=== PATIENT | male | born 1965 | race Caucasian/White ===

== ENCOUNTER → 2019-03-11 12:54 | Outpatient (BNVA) | payer MEDICAID, SELFPAY | PROVIDERS: Family Provider Registered Nurse; PCP Registered Nurse; Visit Provider Anesthesiology | DX: G89.29 Other chronic pain (principal); M47.16 Other spondylosis with myelopathy, lumbar region; M51.06 Intervertebral disc disorders with myelopathy, lumbar region; M53.2X7 Spinal instabilities, lumbosacral region; M51.16 Intervertebral disc disorders with radiculopathy, lumbar region; M51.36 Other intervertebral disc degeneration, lumbar region; M50.30 Other cervical disc degeneration, unspecified cervical region; F17.210 Nicotine dependence, cigarettes, uncomplicated; Z79.891 Long term (current) use of opiate analgesic | CPT/HCPCS: 99214 ==

== ENCOUNTER → 2019-04-02 11:09 | Outpatient (BNVA) | payer MEDICAID, SELFPAY | PROVIDERS: Family Provider Registered Nurse; PCP Registered Nurse; Visit Provider Urology | DX: Z12.5 Encounter for screening for malignant neoplasm of prostate (principal); N40.1 Benign prostatic hyperplasia with lower urinary tract symptoms; N41.1 Chronic prostatitis | CPT/HCPCS: 81001 ==

== ENCOUNTER → 2019-05-05 12:34 | Outpatient (BNVA) | payer MEDICAID, SELFPAY | PROVIDERS: Family Provider Registered Nurse; PCP Registered Nurse; Visit Provider Nurse Practitioner | DX: G89.29 Other chronic pain (principal); M54.5 Low back pain; F17.210 Nicotine dependence, cigarettes, uncomplicated; Z79.891 Long term (current) use of opiate analgesic; Z71.6 Tobacco abuse counseling | CPT/HCPCS: 99213 ==

== ENCOUNTER → 2019-07-28 09:23 | Outpatient (BNVA) | payer MEDICAID, SELFPAY | PROVIDERS: Family Provider Registered Nurse; PCP Registered Nurse; Visit Provider Anesthesiology | DX: G89.29 Other chronic pain (principal); M51.36 Other intervertebral disc degeneration, lumbar region; M51.16 Intervertebral disc disorders with radiculopathy, lumbar region; M51.06 Intervertebral disc disorders with myelopathy, lumbar region; M53.2X7 Spinal instabilities, lumbosacral region; M47.16 Other spondylosis with myelopathy, lumbar region; M50.30 Other cervical disc degeneration, unspecified cervical region; F17.210 Nicotine dependence, cigarettes, uncomplicated; Z71.6 Tobacco abuse counseling | CPT/HCPCS: 99214 ==

== ENCOUNTER 2021-02-22 11:50 | Outpatient (CLI) | payer MEDICAID, SELFPAY ==
--- NOTE | 2021-02-22 11:57 | XR_ITS ---
WS: [id number] ABDOMEN 1 VIEW(S) HISTORY: hematuria COMPARISON: None available. Extensive air throughout the GI tract. Predominantly within the upper abdomen in the small bowel in t he LEFT abdomen. No definite obstruction at this time. There is moderate fecal retention throughout t he RIGHT colon. No suspicious masses or calcifications. There are small phleboliths in the pelvis. No bone abnormality. XR/XR KUB [id number] IMPRESSION: Increased amount of air within portions of the small bowel and colon. Favor gas troenteritis. Kidneys are obscured by GI content. Cannot visualize renal calcifications.
== END 2021-02-22 11:51 | disposition home or self-care (01) ==
PROVIDERS: PCP Registered Nurse; Visit Provider Nurse Practitioner
DX: R31.0 Gross hematuria (principal)
CPT/HCPCS: 74018; 81003; 87086

== ENCOUNTER → 2021-03-09 14:58 | Outpatient (BNVA) | payer MEDICAID, SELFPAY | PROVIDERS: PCP Registered Nurse; Visit Provider Urology | DX: Z20.822 Contact with and (suspected) exposure to COVID-19 (principal); R31.0 Gross hematuria; C67.2 Malignant neoplasm of lateral wall of bladder; N40.1 Benign prostatic hyperplasia with lower urinary tract symptoms; F17.200 Nicotine dependence, unspecified, uncomplicated; N32.89 Other specified disorders of bladder | CPT/HCPCS: 80048; 81003; 85025; 87635 ==

== ENCOUNTER 2021-03-13 06:07 | Day surgery (SDC) | payer MEDICAID, SELFPAY ==
[2021-03-10 12:04] VITALS: BMI 29.7
--- NOTE | 2021-03-13 06:11 | XR_ITS ---
WS: [id number] CHEST 2 VIEWS HISTORY: Newly diagnosed bladder cancer COMPARISON: None available. Lungs: Mild elevation of the LEFT hemidiaphragm. No pneumonia or nodules. No pleural effusion or pneu mothorax. Cardiac size: Normal. Mediastinum/Aorta: Normal mediastinum. Bones: Normal. XR/XR chest 2V* [id number] IMPRESSION: 1. No pulmonary nodule or mass. 2. Slight elevation LEFT hemidiaphragm.
--- NOTE | 2021-03-13 06:57 | PM.MISC ---
Miscellaneous Note Purpose of Documentation: Change of status Note: Unfortunately there are no beds in the hospital and there were 10 borders in the emergency department that would make it very unlikely to find a bed today. I reviewed with Russell these issues and he was graciously willing to postpone his surgery to Saturday the in the afternoon which would increase her chances most likely appeal to get a bed. If that does not work we can try Saturday the . Our plan is to communicate early on Saturday morning to confirm that there is a good chance of being able to do the cases based on bed availability. I reassured him that based on the findings cystoscopically that his risk is low from postponement. We will plan for TURBT on Saturday in the afternoon Routine prep
--- NOTE | 2021-03-13 06:59 | ANES.PREANE2 ---
Pre-Anesthetic Assessment Pre-Anesthetic Assessment: Height/Weight: Height 1.85 m Weight 102.058 kg Preop Diagnosis: Newly diagnosed bladder cancer Proposed Procedure: Operation Date: 03/13/21 07:00 Proposed Procedures p Cystoscopy(Not Applicable) - David Biggs MD s Transurethral Resection Bladder Tumor(Not Applicable) - David Biggs MD Was Beta Manny taken within 24 hours: N/A Was Clonidine taken within 24 hours: N/A Social: Social History: No alcohol Exam: Pre-Anes Outpt Exam: alert, oriented x 3, clear to auscultation bilaterally and regular rate & rhythm Airway: Submandibular: WNL Cervical ROM: WNL MP: 2 Dentition: Chipped Pulmonary: Pulmonary: COPD CV/HEM: CV/HEM: HTN Metabolic: Metabolic: Hyperlipidemia Musc/skel: Musc/skel: Lower Back Pain Neuropsych: Neuropsych: Neuropathy Anesthetic Plan: ASA status: 3 Anesthesia: General Risk of > 500 ml blood loss (7ml/kg in children): No PFSH Anesthesia PFSH: Medical History (Updated 03/09/21 @ 14:55 by David Biggs MD) Bladder cancer BPH loc w urin obs/LUTS Chronic low back pain Chronic prostatitis DDD (degenerative disc disease), cervical DDD (degenerative disc disease), lumbar Displacement of lumbar disc with radiculopathy Gross hematuria Instability, joint, lumbosacral 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
--- NOTE | 2021-03-13 07:27 | SUR.PREOP ---
0645 Dr Biggs here and surgery postponed til saturday due to no beds upstairs to be admitted into hospital
== END 2021-03-13 07:31 | disposition home or self-care (01) ==
PROVIDERS: PCP Registered Nurse; Visit Provider Urology
PROC: 0TJB8ZZ Inspection of Bladder, Via Natural or Artificial Opening Endoscopic (ICD-10-PCS; CPT 52000; principal; 2021-03-13 07:00)
PROC: 0TBB8ZZ Excision of Bladder, Via Natural or Artificial Opening Endoscopic (ICD-10-PCS; 2021-03-13 07:00)
DX: C67.9 Malignant neoplasm of bladder, unspecified (principal); Z53.8 Procedure and treatment not carried out for other reasons; J44.9 Chronic obstructive pulmonary disease, unspecified; I10 Essential (primary) hypertension; E78.5 Hyperlipidemia, unspecified; N40.1 Benign prostatic hyperplasia with lower urinary tract symptoms; N13.8 Other obstructive and reflux uropathy; F17.210 Nicotine dependence, cigarettes, uncomplicated; Z82.49 Family history of ischemic heart disease and other diseases of the circulatory system
CPT/HCPCS: 71046

== ENCOUNTER 2021-03-15 06:33 | Day surgery (SDC) | payer MEDICAID, SELFPAY ==
[2021-03-14 12:07] VITALS: BMI 29.7
[2021-03-15] VITALS (17 sets, daily range): BP systolic 131–177; BP diastolic 75–101; PULSE 72–93; RESP 10–20; TEMP 36.2–36.7; O2SAT 93–99
--- NOTE | 2021-03-15 07:12 | P.ANESUD_ITS ---
Pre-Anesthetic Update Pre-Anesthetic Assessment: Date of Surgery/Procedure: 03/15/21 Preop Chyna gnosis: Newly diagnosed bladder cancer Proposed Procedure: Operation Date: 03/15/21 08:00 Proposed Procedures p Cystoscopy 27491/c67.2(Not Applicable) - David Biggs MD s Transurethral Resection Bladder Tumor(Not Applicable) - David Biggs MD Any changes to Pre-Anesthetic Assessment?: No Last Intake: Intake Last Liquid Date 03/15/21 Last Liquid Time 05:00 Last Solid Date 03/14/21 Last Solid Time 20:00 Vitals: Temperature 97.5 F L 03/15/21 06:45 Temperature Source Temporal Artery S can 03/15/21 06:45 Pulse Rate 93 03/15/21 06:45 Pulse Rhythm 03/15/21 06:48 Pulse Strength 3+ Normal 03/15/21 06:48 Respiratory Rate 18 03/15/21 06:45 Blood Pressure 131/89 03/15/21 06:45 Blood Pressure Oumou n 103 03/15/21 06:45 Pulse Oximetry 99 03/15/21 06:45 Oxygen Delivery Me thod 03/15/21 06:48 Exam: Pre-Anes Outpt Exam: alert, oriented x 3, clear to auscultation bilaterally and regular rate & rhythm Cardiac Studies: No Data to Display
[2021-03-15] MEDS: sodium chloride 0.9% 1,000 ML 30 ML IV (07:13)
--- NOTE | 2021-03-15 07:53 | W.PM.OPSUD ---
Surgery/Procedure H&P Update DATE OF PROCEDURE: March 15, 2021 DATE H&P PERFORMED: 03/09/21 CHANGES TO PREVIOUS DOCUMENTATION: He was originally scheduled for this procedure on 03/13/2021 but the surgery was postponed until today because of no beds available for postop care. There has been no change in his clinical condition since that time. PREOP DIAGNOSIS: Newly diagnosed bladder cancer PRIMARY INDICATION FOR PROCEDURE: Newly diagnosed bladder cancer. PLANNED PROCEDURE: Operation Date: 03/15/21 08:00 Proposed Procedures p Cystoscopy 25610/c67.2(Not Applicable) - David Biggs MD s Transurethral Resection Bladder Tumor(Not Applicable) - David Biggs MD
--- NOTE | 2021-03-15 07:59 | PM.OP ---
Operative Report Date of procedure: March 15, 2021 Pre-op diagnosis: Preop Diagnosis Newly diagnosed bladder cancer Post-op diagnosis: Newly diagnosed bladder cancer Post-op findings: Large bladder tumor involving the left ureteral orifice. Procedure done: 1. Cystoscopy, transurethral section of bladder tumor large 2. Left ureteroscopy Specimens removed/disposition: Bladder tumor specimen Pathology: Bladder tumor specimens Surgeon: Kalyan Estimated blood loss: Minimal Urine output: Not measured Complications: None Brief History: Russell is a very pleasant 55-year-old white male recently evaluated for gross hematuria and was found to have a papillary tumor on the left posterior lateral bladder wall. The left ureteral orifice could not be clearly identified on clinic cystoscopy. He is admitted for TURBT. Was originally scheduled for 03/13/2021 but had to be postponed due to lack of availability of beds due to hospital capacity being reached. Procedure: After routine preoperative evaluation examination and obtaining of informed consent he was taken to the operating suite on 03/15/2021 where general anesthesia was administered without difficulty after appropriate timeout was performed, SCDs confirmed to be functioning, preoperative antibiotics administered, beta-mario protocol confirmed. Prepped and draped in usual sterile fashion in dorsolithotomy position paying careful attention to avoiding pressure points. 21 Argentine cystoscope with 30 degree lens was introduced into the urethra meatus and advanced into the bladder under videoscopy. The bladder was systematically examined with 30 and 70 degree lenses. The urethra was then calibrated with David sounds and easily accommodated 30 Argentine. 2% lidocaine jelly was instilled into the urethra and then a 25 Argentine well-lubricated resectoscope sheath with visual obturator in place was advanced into the bladder without difficulty. The gyrus bipolar system was utilized with the super loop for the resection and deep sampling and then button probe for the base fulguration. Findings: Tumor was greater than 5 cm in diameter. It involve the left ureteral orifice which was completely resected paying careful attention to avoiding fulguration on the ureteral mucosa. Muscle was visualized at the base of the resected area throughout. All chips were evacuated from the bladder with an Collarity evacuator. A 7 Argentine offset semirigid ureteroscope was carefully advanced into the distal ureter to confirm no residual tumor within the intramural tunnel remaining or in the distal ureter itself. There was none. It was decided to not leave a stent indwelling. Final inspection revealed good hemostasis. No remaining chips in the bladder. A 20 Argentine three-way Koroma catheter with 10 cc placed in the balloon was placed to dependent drainage. Very light CBI was initiated. Efflux was. He tolerated procedure well without complications and was awakened in the operating room and returned recovery in stable condition. PLANS: 1. Admit to observation status 2. Anticipate discharge tomorrow morning with catheter in place to allow better healing before stressing bladder with normal voiding.
[2021-03-15] MEDS: levofloxacin-dextrose 5 % 500 MG/100 ML PREMIX 100 MG IV (08:06)
--- NOTE | 2021-03-15 09:25 | ANE.PACU2 ---
Inpatient post-anesthesia follow up: Airway intact: Yes Vital signs: Temperature 97.7 F Pulse Rate 84 Respiratory Rate 16 Blood Pressure 164/92 Pulse Oximetry 93 Oxygen Delivery Me thod Room Air Oxygen Flow Rate Fraction of Inspir ed Oxygen Hydration adequate: Yes Nausea and vomiting: No Pain level: 2 Mental status: Baseline
--- NOTE | 2021-03-15 10:27 | PC.NURSE ---
0934 Pt taken to bay area in OPS due to no bed available on Med Surg unit. Pt awake and alert. VSS. Pt given water per his request. Denied further wants or needs. CLIR 1028 Pt resting with eyes closed, arouses easily to verbal stimuli. Bladder irrigation continues. Denies pain or discomfort. Denies wants or needs.
[2021-03-15] MEDS: fentaNYL 50 mcg/mL INJ 2mL IVP (13:20)
--- NOTE | 2021-03-15 13:21 | SUR.PHASEI ---
PATIENT WITH INCREASING PUBIC PAIN. MEDICATED FOR PAIN PER DOCTOR RENEE. HOUGH DRAINING WELL. PINK TINGED URINE.
--- NOTE | 2021-03-15 13:49 | SUR.PHASEI ---
RE-EVALUATED BY DOCTOR PEREZ.
--- NOTE | 2021-03-15 13:51 | PM.MISC ---
Miscellaneous Note Purpose of Documentation: Change of status Note: Originally the patient was scheduled to be admitted to observation and placed on the floor. His urine has been completely clear postoperatively and he is done very well. Currently he would be most likely lodging in the PACU or outpatient surgery area overnight based on lack of floor beds. I reviewed with him the type of care that would be required which would be minimal and I think he is comfortable with being discharged home. I am on the basis of the way his urine looks. We will make some arrangements for mitomycin instillation in the office tomorrow. I have alerted pharmacy to that change as well. He will be provided with a leg bag and night bag I have implicitly instructed him to avoid any lifting at all. Catheter will remain in until early next week for voiding trial. I reviewed with the nursing staff the changes and as well I spoke to the nursing house furnishings supervisor.
--- NOTE | 2021-03-15 14:27 | SUR.PHASEI ---
PATIENT WITH RELIEF OF PUBIC PAIN. TOLERATING PO FLUIDS WELL.
[2021-03-15] MEDS: HYDROcodone-acetaminophen 5-325 mg Tablet 1 TAB PO (16:07)
== END 2021-03-15 17:30 | disposition home or self-care (01) ==
PROVIDERS: PCP Registered Nurse; Visit Provider Urology
PROC: 0TJB8ZZ Inspection of Bladder, Via Natural or Artificial Opening Endoscopic (ICD-10-PCS; CPT 52000; principal; 2021-03-15 07:50)
PROC: 0TBB8ZZ Excision of Bladder, Via Natural or Artificial Opening Endoscopic (ICD-10-PCS; CPT 52240; 2021-03-15 07:50)
PROC: 0TJ98ZZ Inspection of Ureter, Via Natural or Artificial Opening Endoscopic (ICD-10-PCS; CPT 52351; 2021-03-15 07:50)
DX: C67.9 Malignant neoplasm of bladder, unspecified (principal); N40.1 Benign prostatic hyperplasia with lower urinary tract symptoms; N13.8 Other obstructive and reflux uropathy; F17.210 Nicotine dependence, cigarettes, uncomplicated
CPT/HCPCS: 52240; 52351; 88305; 88309; J1100; J1956; J2405; J2704; J2710; J3010; J3490; J7030

== ENCOUNTER 2021-03-16 03:15 | Emergency (ER) | payer MEDICAID, SELFPAY ==
[2021-03-16 03:21] VITALS: BP 118/78; PULSE 94; RESP 20; TEMP 36.7; O2SAT 95; BMI 29.7
--- NOTE | 2021-03-16 03:25 | W.ED.MALEGU ---
HPI - Male Genitourinary General: Chief complaint: Urogenital-Male Stated complaint: Catheter issues Time Seen by Provider: 03/16/21 03:25 Source: patient Mode of arrival: ambulatory Limitations: no limitations History of Present Illness: 55-year-old male he had a cystoscope this morning and had a tumor removed from his bladder states he has been having some lower abdominal pain decreased urine output since 11 he had a Koroma placed after surgery states he has had some blood in it believes of the Koroma may be clogged he states his pain is currently a 7 out of 10 denies any worst improving factors. Associated symptoms: Reports hematuria; Deny dysuria, nausea or vomiting Review of Systems Const: Denies: fever(s), chills, body aches or change in appetite Eyes: Denies: blurry vision or eye discomfort ENMT: Denies: throat pain or dental pain Card: Denies: chest pain Resp: Denies: dyspnea GI: Denies: abdominal pain, nausea, vomiting or diarrhea : Reports: oliguria and hematuria; Denies: dysuria Musc: Denies: neck pain or back pain Skin/Breast: Denies: rash Neuro: Denies: headache(s) Psych: Denies: depression Marvin/Lymph: Denies: easy bruising All/Imm: Denies: urticaria PFSH ED PFSH: Medical History Bladder cancer BPH loc w urin obs/LUTS Chronic low back pain Chronic prostatitis DDD (degenerative disc disease), cervical DDD (degenerative disc disease), lumbar Displacement of lumbar disc with radiculopathy Gross hematuria Instability, joint, lumbosacral 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 Opioid contract exists Smoker Spondylosis of lumbar spine with myelopathy Surgical History History of wisdom tooth extraction S/P hernia repair BILATERAL INGUINAL REPAIR A CHILD Family History Mother Heart disease CAUSED IN 70`S Father Brain aneurysm CAUSED AT AGE 71 Social History Alcohol intake: current Marital status: Single Current occupational status: disabled History of recent travel: No Physical Exam Const: COMMON NORMALS: no acute distress, patient oriented x3 and healthy appearing HENMT: COMMON NORMALS: normocephalic and atraumatic HEAD & SCALP: normocephalic and atraumatic Eye: COMMON NORMALS: Equal, round and reactive pupils present and EOMs intact bilaterally PUPIL: Yes Equal, round and reactive pupils present Neck/C-Spine: COMMON NORMALS: full ROM and supple Chest: COMMONS NORMALS: normal inspection of the chest and normal palpation of entire chest wall Resp: COMMON NORMALS: normal respiratory effort, No retractions, No use of accessory muscles and clear to auscultation bilaterally AUSCULTATION: clear to auscultation bilaterally Cardio: COMMON NORMALS: regular rate, regular rhythm and No murmurs present (Cardio) RATE: regular rate RHYTHM: regular rhythm GI: COMMON NORMALS: Normal to inspection, nondistended, normoactive bowel sounds present, Soft to palpation, non-tender and no masses PALPATION: Yes Soft to palpation : OTHER: Koroma bag in place no urine noted does have some slight blood in the bag Extremity: COMMON NORMALS: normal to inspection and full ROM Neuro: COMMON NORMALS: patient oriented x3, moves all extremities and no focal motor deficits Psych: COMMON NORMALS: mental status grossly normal, Normal thought process present and cooperative THOUGHT PROCESS: Normal thought process present Skin: COMMON NORMALS: no rashes or lesions noted and no wounds GENERAL SKIN EXAM: no rashes or lesions noted Course Vital Signs: Vital signs: Vital Signs Temperature 98.0 F 03/16/21 03:21 Pulse Rate 94 03/16/21 03:21 Respiratory Rate 20 H 03/16/21 03:21 Blood Pressure 118/78 03/16/21 03:21 Pulse Oximetry 95 03/16/21 03:21 MDM - Male Medical Decision Making Patient presents here with clogged Koroma catheter was able to flush it he had 400 out and feels improved he stable for discharge she has follow-up with Dr. Biggs today and is to follow-up as scheduled return if worsening. Discharge Plan Discharge Patient Disposition: Home Clinical Impression: Complication of Koroma catheter Condition: Stable Prescriptions: No Action simvastatin 20 mg tablet 20 mg PO QDAY 0RF melatonin 10 mg capsule 10 mg PO BEDTIME 0RF lisinopril 40 mg tablet 40 mg PO QDAY 0RF acetaminophen [Tylenol Extra Strength] 500 mg tablet 500 mg PO Q4H PRN (Reason: Pain) 0RF zinc 50 mg tablet 50 mg PO DAILY 0RF amitriptyline 50 mg tablet 100 mg PO QDAY 30 Days Qty: 60 2RF meloxicam 15 mg tablet 15 mg PO DAILY Qty: 30 3RF Hold Instructions: Resume on 03/22/21. 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
[2021-03-16 03:53] VITALS: BP 104/68; PULSE 97; RESP 17; O2SAT 98
--- NOTE | 2021-03-16 04:01 | PC.NURSE ---
Patient Catheter Care Patient catheter irrigated with 60mL sterile water to remove clots. Urine return 410mL dark red urine. Patient leg bag replaced.
[2021-03-16] MEDS: HYDROcodone-acetaminophen 5-325 mg Tablet 1 TAB PO (04:08)
== END 2021-03-16 04:23 | disposition home or self-care (01) ==
PROVIDERS: Emergency Provider Emergency Medicine; PCP Registered Nurse
DX: T83.9XXA Unspecified complication of genitourinary prosthetic device, implant and graft, initial encounter (principal); Z85.51 Personal history of malignant neoplasm of bladder
CPT/HCPCS: 99283

== ENCOUNTER 2021-03-16 14:15 | Observation (INO) | payer MEDICAID, SELFPAY ==
[2021-03-16 16:00] VITALS: BP 106/64; PULSE 95; RESP 14; TEMP 36.8; O2SAT 91
[2021-03-16] MEDS: D5-NS 0.45% + KCL 20 mEq 20 MEQ/1,000 ML BAG 150 MEQ IV ×2 (16:06→22:47)
--- NOTE | 2021-03-16 16:31 | PC.NURSE ---
patient requesting pain med. Dr Biggs notified.
[2021-03-16 16:54] LABS: Basophils % 0.2 %; Eosinophils % 0.3 %; Hematocrit 36.5 % (42.0-52.0); Lymphocytes # 2.2 10^3/uL (0.8-4.8); Mean Corpuscular HGB Conc 32.9 g/dL (30.0-36.0); Mean Corpuscular Hemoglobin 31.5 pg (28.0-34.0); Mean Corpuscular Volume 95.8 fl (80-94); Mean Platelet Volume 8.3 fL (7.4-10.4); Monocytes # 1.4 10^3/uL (0.2-0.9); Monocytes % 9.3 %; Neutrophils % 75.7 %; Nucleated Red Blood Cells % 0 %; Platelet Count 265 10^3/cmm (130-400); Red Blood Count 3.81 10^6/uL (4.1-5.3); White Blood Count 15.6 10^3/uL (4.0-10.0)
[2021-03-16] MEDS: docusate sodium 100 mg Capsule PO (16:55)
[2021-03-16] MEDS: HYDROcodone-acetaminophen 5-325 mg Tablet 1 TAB PO (16:55)
[2021-03-16] MEDS: tizanidine 4 mg Tablet PO (17:06)
[2021-03-16 18:04] LABS: Anion Gap 17.1 (5-19); Blood Urea Nitrogen 17 mg/dL (6-20); Calcium 9.4 mg/dL (8.5-10.5); Carbon Dioxide 24 mmol/L (22-29); Chloride 93 mmol/L (98-107); Creatinine Clr Calc Pharmacy 151.8637; Glomerular Filtration Rate 117.5 mL/min (90-130); Glucose 111 mg/dL (65-115); Osmolality Calculated 272 mOsm/kg (285-295); Potassium 4.1 mmol/L (3.5-5.1); Sodium 130 mmol/L (136-145)
[2021-03-16 20:00] VITALS: BP 97/59; PULSE 84; RESP 17; TEMP 36.9; O2SAT 93
[2021-03-16] MEDS: amitriptyline 25 mg Tablet 100 MG PO (20:44)
[2021-03-16] MEDS: gabapentin 400 mg Capsule 800 MG PO (20:45)
[2021-03-17] VITALS: BP 98/62; PULSE 79; RESP 17; O2SAT 94
[2021-03-17] MEDS: tizanidine 4 mg Tablet PO ×2 (03:21→16:23)
[2021-03-17 04:00] VITALS: BP 110/64; PULSE 89; O2SAT 90
[2021-03-17] MEDS: D5-NS 0.45% + KCL 20 mEq 20 MEQ/1,000 ML BAG 150 MEQ IV ×2 (05:31→11:54)
--- NOTE | 2021-03-17 06:57 | P.PN_ITS ---
Subjective Subjective: Interval history: Hospital day #2: Postop clot retention status post TURBT. Required multiple manual irrigations last night to get all the clots out. Around midnight last night they were able to get out some large clots and since that time his urine has remained clear. CBI requirements substantially reduced after that and able to be weaned off this morning. So far his urine remains clear. Denies any chest pain shortness of breath creasing abdominal pain. He did have a lot of bladder spasms when the clots were still present. Plan: Maintain Koroma catheter, have CBI available, manual irrigation as needed, reassess this afternoon. If there is any question I would change him to inpatient status and observe again overnight but if he does really well today with no evidence of recurrence of bleeding will consider discharge. Medications: Reviewed: Yes Vitals/I&O/Wt Last Vital Signs Temp 98.4 F 03/16/21 20:00 Pulse 89 03/17/21 04:00 Resp 17 03/17/21 00:00 BP 110/64 03/17/21 04:00 Pulse Ox 90 03/17/21 04:00 03/16/21 03/16/21 03/17/21 14:59 22:59 06:59 Intake Total 1000 / 1000 1000 / 2000 Balance 1000 / 1000 1000 / 2000 Weight last 48 hrs Weight 226 lb 4.8 oz Physical Exam Const: COMMON NORMALS: no acute distress, patient oriented x3 and healthy appearing HENMT: COMMON NORMALS: normocephalic HEAD & SCALP: normocephalic Chest: COMMONS NORMALS: normal inspection of the chest Resp: COMMON NORMALS: normal respiratory effort EFFORT & INSPECTION: Yes able to speak in complete sentences Cardio: COMMON NORMALS: regular rate RATE: regular rate GI: COMMON NORMALS: non-tender Back/Pelvis: OTHER: Urine clear. CBI turned Neuro: COMMON NORMALS: patient oriented x3 Psych: COMMON NORMALS: mental status grossly normal, cooperative and speech normal APPEARANCE: Yes grossly normal ATTITUDE: Yes calm and Yes engaged SPEECH: Yes normal speech Sepsis: Is patient septic: No Data : 03/16/21 16:45 03/16/21 17:33 A&P Assessment and plan (1) Clot retention of urine: It appears all the clots have been completely evacuated and his CBI has been able to be weaned down slowly with no increasing hematuria. We will continue with CBI off today and reevaluate this afternoon. Status: Acute (2) Bladder cancer: Status post TURBT 03/16/2021. Developed clot retention night of discharge/surgery. Status: Acute Qualifiers: Bladder location: lateral wall Qualified Code(s): C67.2 - Malignant neoplasm of lateral wall of bladder Plan Will evaluate for possible discharge this afternoon. If any question regarding increased risk of bleeding will placed inpatient status and observe again overnight. Reviewed with the nursing staff. Attestations Medical Necessity Statement*: Managing for risk of recurrent postop hemorrhage with clot retention. The initial episode was quite unexpected therefore cautious approach involving continued hospital observation today is required but there is a potential for discharge later today. 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
[2021-03-17 07:41] VITALS: BP 104/63; PULSE 88; RESP 15; TEMP 36.7; O2SAT 92
[2021-03-17] MEDS: gabapentin 400 mg Capsule 800 MG PO ×2 (09:41→16:23)
[2021-03-17] MEDS: docusate sodium 100 mg Capsule PO (09:41)
[2021-03-17] MEDS: lisinopril 20 mg Tablet 40 MG PO (09:41)
[2021-03-17] MEDS: atorvastatin 40 mg Tablet 20 MG PO (09:41)
[2021-03-17 12:00] VITALS: BP 113/68; PULSE 88; RESP 15; TEMP 36.6; O2SAT 92
[2021-03-17] MEDS: nicotine 21 mg Patch 1 PATCH TRANSDERMA (12:20)
[2021-03-17 16:00] VITALS: BP 121/78; PULSE 86; RESP 15; TEMP 37.3; O2SAT 93
--- NOTE | 2021-03-17 17:52 | P.DS_ITS ---
Discharge Providers Date of Admission: 03/16/21 14:15 Date of Discharge: March 17, 2021 Attending Provider at Admission: David Biggs MD Attending Provider at Discharge: David Biggs MD Primary Care Provider: EMORY Leong Diagnoses at Discharge Discharge Diagnosis (1) Clot retention of urine: Details from hospital stay: Postoperative clot retention. Required manual and continuous bladder irrigation but ultimately resolved and with no CBI did not recur. Status: Acute (2) Bladder cancer: Details from hospital stay: Pending pathology. Large tumor resected including the right ureteral orifice. Ureteroscopy showed no evidence of involvement in the remaining distal ureter. 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 His urine was clear postoperatively and he was hopeful to be discharged and was able to do so at that time. His urine remained clear until in the evening when he developed gross hematuria and ultimately presented to the emergency department with clot retention. Bladder was irrigated. He was brought into clinic that morning to check on him and he was in retention again. We irrigated about 800 cc of clot from his bladder in the clinic. He was started on CBI but his urine remained red enough that it was felt to be not safe to stop the CBI and for that reason he was direct admitted to the hospital for further evaluation and treatment. Hospital Course Hospital Course Patient was maintained on continuous bladder irrigation for close to 24 hours. Manual irrigation was intermittently performed. Once the clots were completely cleared CBI was run at a much lower rate with no recurrence of hematuria. CBI was turned off on hospital day number 2 in the morning and his urine remained clear throughout the day and for that reason he was offered the opportunity to continue convalescence at home and he chose to do so. Strict emphasis was made regarding avoiding lifting or straining of any variety. Encouraged him to use laxatives and stool softeners as needed. Also encouraged to drink a lot of fluid to reduce the chance of clot retention if he does have some more hematuria Physical Exam Const: COMMON NORMALS: no acute distress, patient oriented x3 and healthy appearing HENMT: COMMON NORMALS: normocephalic HEAD & SCALP: normocephalic Neck/C-Spine: COMMON NORMALS: full ROM Chest: COMMONS NORMALS: normal inspection of the chest Resp: COMMON NORMALS: normal respiratory effort EFFORT & INSPECTION: Yes able to speak in complete sentences Cardio: COMMON NORMALS: regular rate RATE: regular rate GI: COMMON NORMALS: Soft to palpation and non-tender PALPATION: Yes Soft to palpation Back/Pelvis: OTHER: Urine clear. CBI turned Neuro: COMMON NORMALS: patient oriented x3 Psych: COMMON NORMALS: mental status grossly normal, cooperative and speech normal APPEARANCE: Yes grossly normal ATTITUDE: Yes calm and Yes engaged SPEECH: Yes normal speech Sepsis: Is patient septic: No Discharge Data Studies Completed and Pending Laboratory Results WBC 15.6 10^3/uL (4.0-10.0) H 03/16/21 16:45 RBC 3.81 10^6/uL (4.1-5.3) L 03/16/21 16:45 Hgb 12.0 g/dL (11.7-16.6) 03/16/21 16:45 Hct 36.5 % (42.0-52.0) L 03/16/21 16:45 MCV 95.8 fl (80-94) H 03/16/21 16:45 MCH 31.5 pg (28.0-34.0) 03/16/21 16:45 MCHC 32.9 g/dL (30.0-36.0) 03/16/21 16:45 RDW 14.0 % (12.1-15.1) 03/16/21 16:45 Plt Count 265 10^3/cmm (130-400) 03/16/21 16:45 MPV 8.3 fL (7.4-10.4) 03/16/21 16:45 Neut % (Auto) 75.7 % 03/16/21 16:45 Lymph % (Auto) 14.0 % 03/16/21 16:45 [place] % (Auto) 9.3 % 03/16/21 16:45 Eos % (Auto) 0.3 % 03/16/21 16:45 Baso % (Auto) 0.2 % 03/16/21 16:45 Neut # (Auto) 11.80 10^3/uL (1.8-7.7) H 03/16/21 16:45 Lymph # (Auto) 2.2 10^3/uL (0.8-4.8) 03/16/21 16:45 [place] # (Auto) 1.4 10^3/uL (0.2-0.9) H 03/16/21 16:45 Eos # (Auto) 0.0 10^3/uL (0.0-0.8) 03/16/21 16:45 Baso # (Auto) 0.0 10^3/uL (0.0-0.1) 03/16/21 16:45 Nucleated RBC % (auto) 0 % 03/16/21 16:45 Nucleated RBCs # 0.0 /100WBC 03/16/21 16:45 Sodium 130 mmol/L (136-145) L 03/16/21 17:33 Potassium 4.1 mmol/L (3.5-5.1) 03/16/21 17:33 Chloride 93 mmol/L (98-107) L 03/16/21 17:33 Carbon Dioxide 24 mmol/L (22-29) 03/16/21 17:33 Anion Gap 17.1 (5-19) 03/16/21 17:33 BUN 17 mg/dL (6-20) 03/16/21 17:33 Creatinine 0.7 mg/dL (0.7-1.2) 03/16/21 17:33 GFR Calculation 117.5 mL/min (90-130) 03/16/21 17:33 Glucose 111 mg/dL (65-115) 03/16/21 17:33 Calculated Osmolality 272 mOsm/kg (285-295) L 03/16/21 17:33 Calcium 9.4 mg/dL (8.5-10.5) 03/16/21 17:33 Procedures Performed Continuous bladder irrigation and manual bladder irrigation Vitals Last Vital Signs Temp 99.1 F 03/17/21 16:00 Pulse 86 03/17/21 16:00 Resp 15 03/17/21 16:00 BP 121/78 03/17/21 16:00 Pulse Ox 93 03/17/21 16:00 Discharge Plan Discharge Patient Disposition: Home Condition: Stable Prescriptions: New levofloxacin 500 mg tablet 500 mg PO DAILY 7 Days Qty: 7 0RF Continued simvastatin 20 mg tablet 20 mg PO QDAY 0RF melatonin 10 mg capsule 10 mg PO BEDTIME 0RF lisinopril 40 mg tablet 40 mg PO QDAY 0RF acetaminophen [Tylenol Extra Strength] 500 mg tablet 500 mg PO Q4H PRN (Reason: Pain) 0RF zinc 50 mg tablet 50 mg PO DAILY 0RF amitriptyline 50 mg tablet 100 mg PO QDAY 30 Days Qty: 60 2RF tizanidine 4 mg tablet 4 mg PO TID PRN (Reason: muscle spasticity) Qty: 90 1RF gabapentin 800 mg tablet 800 mg PO TID Qty: 90 1RF Held meloxicam 15 mg tablet 15 mg PO DAILY Qty: 30 3RF Hold Instructions: Resume on 03/22/21. Discharge Orders: Discharge Order (Routine); Ordered 03/17/21 Ordered By: David Biggs Referrals: David Biggs MD [Physician] - 03/21/21 (Voiding trial, pathology report check) Discharge Diet: Usual diet Discharge Activity: Limit activity as instructed Patient Instructions: Levothyroxine (By mouth), Bladder Cancer (DC), Opioid Safety Activity Restrictions/Additional Instructions: 1. Is very important to avoid any strenuous activity or lifting. 2. This includes no straining for bowel movements. 3. If you see your urine becoming red please increase your fluid intake dramatically to help prevent clots. 4. Use laxatives as needed. 5. Continue the antibiotics prescribed for you until they are completed. 6. I will see you back in my office on Saturday for a pathology report check and voiding trial and catheter removal. Discharge Attestations Time Spent in Discharge Care*: greater than 30 min Quality Metrics Clinical Quality Measures [ No reported AMI, CVA or VTE this stay] Coding Level of Care Code Acute Chg FW DC note Diagnoses Clot retention of urine R33.8 Bladder cancer C67.0 Bladder location: trigone
--- NOTE | 2021-03-17 19:41 | PC.NURSE ---
pt has done well today. pts urine has been light pink at darkest. pt has had some clots. pt has not had any complaints of pain. pt will discharge this evening per Dr Biggs. discharge paperwork gone over with pt. the importance of taking it easy and not really doing anything until pt sees Dr Biggs was discussed. pt understood and said Dr Biggs had discussed this with him. pt plans to not do much the next couple of days. all questions were answered. iv removed. leg bag placed on pt. we are just waiting for pt's ride to get here. report given to nightshift nurse and she was told about the above. ride should be here in about 15 min per pt. operation shift supervisor will continue to monitor.
--- NOTE | 2021-03-17 23:18 | PC.NURSE ---
pt d/c and left floor via wheelchair and this nurse to meet ride at surgical entrance. all belongings were with the patient.
== END 2021-03-17 20:05 | disposition home or self-care (01) ==
PROVIDERS: Admitting Provider Urology; PCP Registered Nurse; Visit Provider Urology
DX: R33.8 Other retention of urine (principal); C67.8 Malignant neoplasm of overlapping sites of bladder; N40.1 Benign prostatic hyperplasia with lower urinary tract symptoms; N13.8 Other obstructive and reflux uropathy; F17.210 Nicotine dependence, cigarettes, uncomplicated; Z82.49 Family history of ischemic heart disease and other diseases of the circulatory system
CPT/HCPCS: 80048; 85025; G0378; G0379

== ENCOUNTER → 2021-05-23 13:21 | Outpatient (BNVA) | payer MEDICAID, SELFPAY | PROVIDERS: PCP Registered Nurse; Visit Provider Urology | DX: C67.0 Malignant neoplasm of trigone of bladder (principal) | CPT/HCPCS: 81003 ==

== ENCOUNTER → 2021-08-22 14:20 | Outpatient (BNVA) | payer MEDICAID, SELFPAY | PROVIDERS: PCP Registered Nurse; Visit Provider Urology | DX: C67.0 Malignant neoplasm of trigone of bladder (principal); N40.1 Benign prostatic hyperplasia with lower urinary tract symptoms | CPT/HCPCS: 52000; 81003 ==

== ENCOUNTER → 2021-11-23 14:19 | Outpatient (BNVA) | payer MEDICAID, SELFPAY | PROVIDERS: PCP Registered Nurse; Visit Provider Urology | DX: C67.0 Malignant neoplasm of trigone of bladder (principal) | CPT/HCPCS: 52000 ==

== ENCOUNTER → 2021-11-30 13:00 | Outpatient (BNVA) | payer MEDICAID, SELFPAY | PROVIDERS: PCP Registered Nurse; Visit Provider Urology | DX: C67.0 Malignant neoplasm of trigone of bladder (principal) | CPT/HCPCS: 88112 ==

== ENCOUNTER → 2022-02-27 09:20 | Outpatient (BNVA) | payer MEDICAID, SELFPAY | PROVIDERS: PCP Registered Nurse; Visit Provider Urology | DX: C67.0 Malignant neoplasm of trigone of bladder (principal) | CPT/HCPCS: 52000; 99213 ==

== ENCOUNTER 2022-03-28 10:51 | Outpatient (CLI) | payer MEDICAID, SELFPAY ==
--- NOTE | 2022-03-28 11:00 | XR_ITS ---
WS: [id number] XR IVP w KUB [id number] REASON FOR EXAM: BLADDER CANCER The patient's record of transurethral resection of bladder tumor was reviewed noting the need for sharon luating the intramural portion of the distal left ureter. FINDINGS: Initial corporate trust officer film demonstrated no urinary tract calculi. Significant amount of bowel gas was present which limited diagnostic quality examination. After intravenous constriction of contrast multiple images of the abdomen and pelvis were obtained. A normal right nephrogram was demonstrated. The left nephrogram was obscured by overlying bowel gas. The renal calyces and the renal pelvis were normal bilaterally. The mid and proximal ureters are of normal caliber and demonstrated a normal course to the bladder. The distal ureters are well demonstrated through the region of the bladder trigone. Distal ureters ap pear normal, symmetric. Specifically, there is no extrinsic or intrinsic mass effect identified in th e distal left/intramural segment. The filled and postvoid views of the bladder demonstrated no abnormality. XR/XR IVP w KUB [id number] IMPRESSION: Intravenous urogram with no abnormality identified. Specifically the distal left ureter/intramural segment appeared normal.
[2022-03-28] MEDS: iohexol 300 mg/mL 100 mL Btl IV (11:45)
== END 2022-03-28 10:52 | disposition home or self-care (01) ==
LOC: RAD 10:52
PROVIDERS: PCP Registered Nurse; Visit Provider Urology
DX: C67.0 Malignant neoplasm of trigone of bladder (principal)
CPT/HCPCS: 74400; 81003; 99213; Q9967

== ENCOUNTER 2022-07-05 07:29 | Day surgery (SDC) | payer MEDICAID, SELFPAY ==
[2022-07-03 14:52] VITALS: BMI 26.4
[2022-07-05 07:44] VITALS: BP 136/85; PULSE 90; RESP 18; TEMP 36.5; O2SAT 98
[2022-07-05] MEDS: sodium chloride 0.9% 1,000 ML 30 ML IV (07:53)
--- NOTE | 2022-07-05 09:02 | ANES.PREANE2 ---
Pre-Anesthetic Assessment Height/Weight: Height 1.85 m Weight 90.718 kg Temp Pulse Resp BP Pulse Ox 97.7 F 90 18 136/85 98 07/05/22 07:44 07/05/22 07:44 07/05/22 07:44 07/05/22 07:44 07/05/22 07:44 Preop Diagnosis: Screening Operation Date: 07/05/22 09:00 Proposed Procedures p [id number] Colonscopy Z12.11(Not Applicable) - David Olivia DO Familial anesthetic complications: None Was Beta Manny taken within 24 hours: N/A Was Clonidine taken within 24 hours: N/A Last intake: Intake Last Liquid Date 07/05/22 Last Liquid Time 06:30 Last Solid Date 07/03/22 Social Tobacco and No alcohol .5 pack(s) per day 30 pack years Some marijuana Exam alert, oriented x 3, clear to auscultation bilaterally and regular rate & rhythm Airway Submandibular: within normal limits Cervical ROM: within normal limits Mallampati: Class II Dentition: chipped History/ROS No significant history except as noted and No significant complaints Pulmonary None reported CV/HEM Hypertension and None reported Bladder cancer Hepatic None reported GI None reported Metabolic Hyperlipidemia Musc/skel Lower Back Pain and Osteoarthritis/DJD Neuropsych Neuropathy Anesthetic Plan ASA status: 2 Anesthesia: Anesthesia Evaluation, General and MAC Risk of > 500 ml blood loss (7ml/kg in children): No Medications/Allergies Home Medications Medication Instructions Recorded Confirmed Last Taken Type acetaminophen 500 mg tablet 500 mg PO Q4H PRN Pain 03/09/19 07/03/22 07/04/22 History (Tylenol Extra Strength) lisinopril 40 mg tablet 40 mg PO QDAY 03/09/19 07/03/22 07/04/22 History melatonin 10 mg capsule 10 mg PO BEDTIME 03/09/19 07/03/22 07/04/22 History simvastatin 20 mg tablet 20 mg PO QDAY 03/11/19 07/03/22 07/04/22 History amitriptyline 50 mg tablet 100 mg PO QDAY 30 days #60 tabs 05/05/19 07/03/22 07/04/22 Rx meloxicam 15 mg tablet 15 mg PO DAILY Pain #30 tabs 05/05/19 07/03/22 07/04/22 Rx gabapentin 800 mg tablet 800 mg PO TID pain #90 tabs 07/28/19 07/03/22 07/04/22 Rx tizanidine 4 mg tablet 4 mg PO TID PRN muscle spasticity 07/28/19 07/03/22 07/04/22 Rx #90 tabs Allergies Allergy/AdvReac Type Severity Reaction Status Date / Time No Known Allergies Allergy Verified 07/05/22 07:41 Current Medications Generic Name Dose Route Start Last Admin Trade Name Freq PRN Reason Stop Dose Admin Sodium Chloride 1,000 mls @ 30 mls/hr 07/05/22 07:45 07/05/22 07:53 Sodium Chloride 0.9% IV 07/06/22 07:44 30 mls/hr .Q24H KENYATTA Administration PFSH Anesthesia Medical History Bladder cancer BPH loc w urin obs/LUTS Chronic low back pain Chronic prostatitis DDD (degenerative disc disease), cervical DDD (degenerative disc disease), lumbar Displacement of lumbar disc with radiculopathy Gross hematuria Instability, joint, lumbosacral 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 Opioid contract exists Smoker Spondylosis of lumbar spine with myelopathy Surgical History History of transurethral destruction of bladder lesion History of wisdom tooth extraction S/P hernia repair BILATERAL INGUINAL REPAIR A CHILD Family History Mother Heart disease CAUSED IN 70`S Father Brain aneurysm CAUSED AT AGE 71 Social History Smoking and tobacco status: current every day smoker cigarettes Packs smoked per day: 0.5 Alcohol intake: current Alcohol intake frequency: holidays/special occasions only Substance/Drug Use: never Marital status: Single Current occupational status: disabled Data Anesthesia Cardiac Studies: No Data to Display
--- NOTE | 2022-07-05 09:29 | PM.HP ---
Providers/Chief Complaint Primary Care Provider: EMORY Leong Chief Complaint: 69136 Z12.11 History of Present Illness Russell Ortiz is a 56 year old male here for his first screening colonoscopy. He denies any family history of colon cancer, nausea, emesis, diarrhea, constipation, hematochezia and/or melena. Medications/Allergies Home Medications Medication Instructions Recorded Confirmed Last Taken Type acetaminophen 500 mg tablet 500 mg PO Q4H PRN Pain 03/09/19 07/03/22 07/04/22 History (Tylenol Extra Strength) lisinopril 40 mg tablet 40 mg PO QDAY 03/09/19 07/03/22 07/04/22 History melatonin 10 mg capsule 10 mg PO BEDTIME 03/09/19 07/03/22 07/04/22 History simvastatin 20 mg tablet 20 mg PO QDAY 03/11/19 07/03/22 07/04/22 History amitriptyline 50 mg tablet 100 mg PO QDAY 30 days #60 tabs 05/05/19 07/03/22 07/04/22 Rx meloxicam 15 mg tablet 15 mg PO DAILY Pain #30 tabs 05/05/19 07/03/22 07/04/22 Rx gabapentin 800 mg tablet 800 mg PO TID pain #90 tabs 07/28/19 07/03/22 07/04/22 Rx tizanidine 4 mg tablet 4 mg PO TID PRN muscle spasticity 07/28/19 07/03/22 07/04/22 Rx #90 tabs Allergies Allergy/AdvReac Type Severity Reaction Status Date / Time No Known Allergies Allergy Verified 07/05/22 07:41 PFSH Acute PFSH: Medical History Bladder cancer BPH loc w urin obs/LUTS Chronic low back pain Chronic prostatitis DDD (degenerative disc disease), cervical DDD (degenerative disc disease), lumbar Displacement of lumbar disc with radiculopathy Gross hematuria Instability, joint, lumbosacral 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 Opioid contract exists Smoker Spondylosis of lumbar spine with myelopathy Surgical History History of transurethral destruction of bladder lesion History of wisdom tooth extraction S/P hernia repair BILATERAL INGUINAL REPAIR A CHILD Family History Mother Heart disease CAUSED IN 70`S Father Brain aneurysm CAUSED AT AGE 71 Social History Smoking and tobacco status: current every day smoker cigarettes Packs smoked per day: 0.5 Alcohol intake: current Alcohol intake frequency: holidays/special occasions only Substance/Drug Use: never Marital status: Single Current occupational status: disabled Vitals/I&O/Wt Last Vital Signs Temp 97.7 F 07/05/22 07:44 Pulse 90 07/05/22 07:44 Resp 18 07/05/22 07:44 BP 136/85 07/05/22 07:44 Pulse Ox 98 07/05/22 07:44 Weight last 48 hrs Weight 200 lb A&P Assessment and plan (1) Colon cancer screening: Plan Colonoscopy The risks and benefits of the procedure, including bleeding, infection, intestinal perforation requiring surgery, missed lesion were explained to the patient. The patient is understanding of the risks and wishes to proceed. Attestations Medical Necessity Statement*: Home Coding Level of Care Code Acute Code for Chg Fwd Diagnoses Colon cancer screening Z12.11
[2022-07-05 09:47] VITALS: BP 97/63; PULSE 87; RESP 14; TEMP 36.1; O2SAT 96
[2022-07-05 10:09] VITALS: BP 115/81; PULSE 76; RESP 18; O2SAT 96
--- NOTE | 2022-07-05 17:19 | ANE.PACU2 ---
Inpatient post-anesthesia follow up: Airway intact: Yes Vital signs: Temperature 97 F Pulse Rate 76 Respiratory Rate 18 Blood Pressure 115/81 Pulse Oximetry 96 Oxygen Delivery Me thod Room Air Oxygen Flow Rate Fraction of Inspir ed Oxygen Hydration adequate: Yes Nausea and vomiting: No Pain level: 1 Mental status: Baseline
== END 2022-07-05 10:29 | disposition home or self-care (01) ==
PROVIDERS: PCP Registered Nurse; Visit Provider Surgery
PROC: 0DJD8ZZ Inspection of Lower Intestinal Tract, Via Natural or Artificial Opening Endoscopic (ICD-10-PCS; CPT 45378; principal; 2022-07-05 09:00)
DX: Z12.11 Encounter for screening for malignant neoplasm of colon (principal); F17.210 Nicotine dependence, cigarettes, uncomplicated; I10 Essential (primary) hypertension; E78.5 Hyperlipidemia, unspecified
CPT/HCPCS: 45378; G0121; J2704; J7030

== ENCOUNTER 2023-07-23 11:27 | Emergency (ER) | payer MEDICAID, SELFPAY ==
--- NOTE | 2023-07-23 11:30 | XRR_ITS ---
PROCEDURE INFORMATION: Exam: XR Left Ankle Exam date and time: 07/23/2023 11:44 AM Age: 57 years old Clinical indication: Injury or trauma; Other: Not specified; Blunt trauma; Ankle; Left TECHNIQUE: Imaging protocol: Radiologic exam of the left ankle. Views: 3 or more views. COMPARISON: No relevant prior studies available. FINDINGS: Bones/joints: No obvious displaced fracture or dislocation. Soft tissues: Soft tissue swelling about the ankle. XR/XR ankle LT min 3V* [id number] IMPRESSION: 1. No obvious displaced fracture or dislocation. 2. Soft tissue swelling about the ankle.
[2023-07-23 11:52] VITALS: BP 145/80; PULSE 72; RESP 18; TEMP 36.8; O2SAT 91; BMI 25.7
--- NOTE | 2023-07-23 12:11 | XRR_ITS ---
PROCEDURE INFORMATION: Exam: XR Left Knee Exam date and time: 07/23/2023 12:18 PM Age: 57 years old Clinical indication: Injury or trauma; Fall; Blunt trauma; Knee; Left; Additional info: Fall with popping TECHNIQUE: Imaging protocol: Radiologic exam of the left knee. Views: 3 views. COMPARISON: CR XR ankle LT min 3V* [id number] 07/23/2023 11:44 AM FINDINGS: Bones/joints: No acute fracture or dislocation. No significant knee joint effusion. Soft tissues: Superficial soft tissues are within normal limits. XR/XR knee LT 3V* [id number] IMPRESSION: No acute findings.
--- NOTE | 2023-07-23 12:12 | ED_ITS ---
HPI - Extremity Problem General: Chief complaint: Extremity Injury, Lower Stated complaint: Left leg injury Time Seen by Provider: 07/23/23 12:04 Source: patient Mode of arrival: ambulatory Limitations: no limitations History of Present Illness: This patient brings himself to the [facility] part today because of injury that he suffered last Saturday. He states he was out walking her dog and dog bolted one- way made him to twist any stepped on his own foot resulting in twisting his ankle and falling to the ground. He states that his left foot and ankle have been swollen and bruised which he send essentially has been unchanged since the injury. He has been using a crutch to help bear weight. He states he has some popping and pain in his left knee. No other injuries claimed. He does not hit his head or suffer a loss of consciousness. He does not take any blood thinning medications. MD Complaint: extremity pain and extremity swelling Location: left and lower extremity Associated symptoms: Deny fever(s) Review of Systems Const: Denies: fever(s) Eyes: Denies: change in vision ENMT: Denies: throat pain or odynophagia Card: Denies: palpitations, syncope or pre-syncope Resp: Denies: dyspnea, productive cough or non-productive cough Musc: Reports: extremity pain and extremity swelling; Denies: neck pain or back pain Neuro: Denies: headache(s), numbness in extremities or weakness in extremities Marvin/Lymph: Denies: easy bruising or easy bleeding PFS ED PFSH: Medical History Bladder cancer Gross hematuria Smoker Opioid contract exists Chronic prostatitis BPH loc w urin obs/LUTS Spondylosis of lumbar spine with myelopathy Instability, joint, lumbosacral 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 Displacement of lumbar disc with radiculopathy DDD (degenerative disc disease), lumbar DDD (degenerative disc disease), cervical Chronic low back pain Surgical History History of transurethral destruction of bladder lesion S/P hernia repair BILATERAL INGUINAL REPAIR A CHILD History of wisdom tooth extraction Family History Mother Heart disease CAUSED IN 70`S Father Brain aneurysm CAUSED AT AGE 71 Social History Smoking and tobacco/nicotine status: current every day tobacco/nicotine user cigarettes Packs smoked per day: 0.5 Alcohol intake: current Alcohol intake frequency: holidays/special occasions only Substance/Drug Use: never Marital status: Single Current occupational status: disabled Physical Exam Narrative: EXAM NARRATIVE: He appears to be alert responsive to questions and in no acute distress. Const: COMMON NORMALS: no acute distress, average body habitus and patient oriented x3 GENERAL APPEARANCE: cooperative HENMT: COMMON NORMALS: normocephalic and atraumatic HEAD & SCALP: normocephalic and atraumatic Eye: COMMON NORMALS: Equal, round and reactive pupils present and EOMs intact bilaterally PUPIL: Yes Equal, round and reactive pupils present Neck/C-Spine: COMMON NORMALS: full ROM Resp: EFFORT & INSPECTION: Yes able to speak in complete sentences Cardio: COMMON NORMALS: Peripheral pulses 2+ throughout PERIPHERAL PULSES: Peripheral pulses 2+ throughout Back/Pelvis: COMMON NORMALS: no thoracic nor lumbar tenderness and thoraco- lumbar ROM normal Extremity: NARRATIVE EXTREMITY EXAM: Examination of his extremities revealed the left lower extremity be remarkable for swelling and ecchymosis to the foot and ankle. There is no laxity to varus or valgus stress or anterior posterior stress. There is no tenderness in the midfoot or over the fifth metatarsal. There is no joint line tenderness noted over the ankle joint. He has normal range of motion. There is no lower leg tenderness. The knee appears to be normal. There is no effusion. There is no on ballotable patella. There is no laxity to varus or valgus stress. There is no laxity to anterior posterior drawer or Issac's procedure. His hip range of motion is normal without tenderness. Neuro: COMMON NORMALS: patient oriented x3, moves all extremities, no focal motor deficits and no sensory deficits noted Psych: COMMON NORMALS: mental status grossly normal Course Vital Signs: Vital signs: Vital Signs Temperature 98.2 F 07/23/23 11:52 Pulse Rate 87 07/23/23 12:20 Respiratory Rate 18 07/23/23 12:20 Blood Pressure 145/86 07/23/23 12:20 Pulse Oximetry 98 07/23/23 12:20 Oxygen Delivery Me thod Room Air 07/23/23 12:20 MDM - Extremity (Nontraumatic) Medical Decision Making This patient presented to the emerged part because of concerned about pain and swelling in his left ankle as well as some popping and cracking that occurs on occasion his left knee. States that he was involved in a accident when his dog switch directions pulling him the opposite direction and he stepped on his own foot which caused him to roll his ankle. He has been using a single crutch for last couple days but is here to ensure that he has no evidence of broken bone etc. Clinical exam revealed ecchymosis and swelling to his left ankle and foot. There was no evidence of bony tenderness in any of his examination of his lower extremity. His knee examination was nonfocal without any laxity effusion erythema ecchymosis etc. Imaging was obtained to ensure that there was no fracture or dislocation etc. There is no evidence of any acute fracture at this time. He was advised on those findings and the need to continue ice massage nonweightbearing with crutch assistance as well as follow-up with either his physician or at this facility 40 any continued pain or discomfort after 5 to 7 days of usual expected recovery. He acknowledged our discussion and voiced understanding. Lab Data Radiology Impressions Ankle X-Ray 07/23/23 11:30 IMPRESSION: 1. No obvious displaced fracture or dislocation. 2. Soft tissue swelling about the ankle. Knee X-Ray 07/23/23 12:11 IMPRESSION: No acute findings. All radiology interpretation(s) finalized by discharge Discharge Plan Discharge Patient Disposition: Home Clinical Impression: Ankle sprain and strain, Knee pain, left Condition: Stable Prescriptions: No Action simvastatin 20 mg tablet 20 mg PO QDAY melatonin 10 mg capsule 10 mg PO BEDTIME lisinopril 40 mg tablet 40 mg PO QDAY acetaminophen [Tylenol Extra Strength] 500 mg tablet 500 mg PO Q4H PRN (Reason: Pain) amitriptyline 50 mg tablet 100 mg PO QDAY 30 Days Qty: 60 2RF meloxicam 15 mg tablet 15 mg PO DAILY Qty: 30 3RF Hold Instructions: Resume on 03/22/21. tizanidine 4 mg tablet 4 mg PO TID PRN (Reason: muscle spasticity) Qty: 90 1RF gabapentin 800 mg tablet 800 mg PO TID Qty: 90 1RF lidocaine HCl 2 % jelly 1 applic intra-urethral ONCE Qty: 1 0RF Discharge Orders: Discharge ED (Routine); Ordered 07/23/23 Ordered By: Hemanth Mehta Referrals: Benita Crooks FNP [Primary Care Provider] - Discharge Diet: Usual diet Discharge Activity: Increase activity as tolerated and Use walker/crutches as instructed Patient Instructions: Opioid Safety, Pain Management Activity Restrictions/Additional Instructions: As we discussed while you are in the emergency department you have no evidence of a broken bone in your ankle or knee at this time. We recommend you continue to use the crutches for the next 2 to 3 days and then increase your weightbearing as tolerated. If after 5-7 days you are still having difficulty with swelling pain or other concerns we are happy to reevaluate you. Use ice on the areas of involvement for 10 to 15 minutes 3-4 times daily as well as you may use ibuprofen or Aleve and [id number] doses to help with any pain or discomfort. Coding Level of Care Code ED Educational Technology Specialist for Rudy Riley
[2023-07-23 12:20] VITALS: BP 145/86; PULSE 87; RESP 18; O2SAT 98
[2023-07-23 13:59] VITALS: BP 141/88; PULSE 81; RESP 16; O2SAT 100
== END 2023-07-23 14:00 | disposition home or self-care (01) ==
PROVIDERS: Emergency Provider Emergency Medicine; PCP Registered Nurse
DX: S93.402A Sprain of unspecified ligament of left ankle, initial encounter (principal); S96.912A Strain of unspecified muscle and tendon at ankle and foot level, left foot, initial encounter; M25.562 Pain in left knee; Z85.51 Personal history of malignant neoplasm of bladder; F17.210 Nicotine dependence, cigarettes, uncomplicated; X50.1XXA Overexertion from prolonged static or awkward postures, initial encounter
CPT/HCPCS: 73562; 73610; 99283; E0114

== ENCOUNTER 2023-08-17 09:11 | Emergency (ER) | payer MEDICAID, SELFPAY ==
[2023-08-17 09:14] VITALS: BP 115/74; PULSE 88; RESP 18; TEMP 36.7; O2SAT 97
--- NOTE | 2023-08-17 09:22 | XRR_ITS ---
PROCEDURE INFORMATION: Exam: XR Left Knee Exam date and time: 08/17/2023 9:36 AM Age: 57 years old Clinical indication: Pain; Knee; Left TECHNIQUE: Imaging protocol: Radiologic exam of the left knee. Views: 3 views. COMPARISON: CR XR knee LT 3V* [id number] 07/23/2023 12:18 PM FINDINGS: Bones/joints: Normal. Soft tissues: Normal. XR/XR knee LT 3V* [id number] IMPRESSION: No acute findings.
--- NOTE | 2023-08-17 09:39 | ED_ITS ---
HPI - Extremity Problem 2 General: Chief complaint: Extremity Problem,Nontraumatic Stated complaint: left leg knee pain Time Seen by Provider: 08/17/23 09:22 Source: patient Mode of arrival: ambulatory History of Present Illness: 57-year-old male presents emergency room with complaint of left knee ankle and foot pain. He was seen on July for 5 days after he had an injury while walking his dog he had twisted his ankle. He had x-rays of his ankle and his knee and both of which did not show any acute fractures. He was offered a brace evidently at that time but declined to follow-up with his primary care doctor set him up for MRI of his knee which is upcoming in the next week. No further injury since the initial injury on . He is complaining of continued pain in the knee and foot and there is some mild redness in the ankle and a small blister that has opened up on the instep of the left foot. MD Complaint: joint pain Relieving factors: nothing Exacerbating factors: weight bearing and walking Associated symptoms: Deny chest pain, fever(s) or rash Review of Systems 2 Const: Denies: fever(s) or chills Card: Denies: chest pain Resp: Denies: dyspnea GI: Denies: abdominal pain : Denies: dysuria, urinary frequency or urinary urgency Musc: Denies: neck pain or back pain Skin/Breast: Denies: rash PFSH ED 2 PFSH: Medical History Bladder cancer Gross hematuria Smoker Opioid contract exists Chronic prostatitis BPH loc w urin obs/LUTS Spondylosis of lumbar spine with myelopathy Instability, joint, lumbosacral 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 Displacement of lumbar disc with radiculopathy DDD (degenerative disc disease), lumbar DDD (degenerative disc disease), cervical Chronic low back pain Surgical History History of transurethral destruction of bladder lesion S/P hernia repair BILATERAL INGUINAL REPAIR A CHILD History of wisdom tooth extraction Family History Mother Heart disease CAUSED IN 70`S Father Brain aneurysm CAUSED AT AGE 71 Social History Smoking and tobacco/nicotine status: current every day tobacco/nicotine user cigarettes Packs smoked per day: 0.5 Alcohol intake: current Alcohol intake frequency: holidays/special occasions only Substance/Drug Use: never Marital status: Single Current occupational status: disabled Physical Exam 2 Const: GENERAL APPEARANCE: cooperative and comfortable O RIENTATION/CONSCIOUSNESS: Yes awake, Yes oriented to person, Yes oriented to place and Yes oriented to time HENMT: COMMON NORMALS: normocephalic, atraumatic and hearing grossly normal bilaterally HEAD & SCALP: normocephalic and atraumatic Resp: COMMON NORMALS: normal respiratory effort, No retractions, No use of accessory muscles and clear to auscultation bilaterally AUSCULTATION: clear to auscultation bilaterally Cardio: COMMON NORMALS: regular rate, regular rhythm and No murmurs present (Cardio) RATE: regular rate RHYTHM: regular rhythm Extremity: COMMON NORMALS: capillary refill normal and no calf tenderness O THER: Moderate redness and swelling with some valgus deformity at tarsometatarsal joint. The medial instep there is deroofed blister. Neuro: SENSORIUM/ORIENTATION: Yes oriented to person, Yes oriented to place and Yes oriented to time Skin: COMMON NORMALS: no rashes or lesions noted GENERAL SKIN EXAM: no rashes or lesions noted Course 2 Vital Signs: Vital signs: Vital Signs Temperature 98.1 F 08/17/23 09:14 Pulse Rate 85 08/17/23 11:13 Respiratory Rate 18 08/17/23 09:14 Blood Pressure 115/74 08/17/23 09:14 Pulse Oximetry 99 08/17/23 11:13 Oxygen Delivery Me thod Room Air 08/17/23 09:14 MDM - Extremity (Nontraumatic) Medical Decision Making X-ray of the foot shows proximal fractures of the first and second metatarsals, mild displacement at the first metatarsal. These are comminuted. Reviewed the films and the case with Dr. Guevara is on-call for podiatry he asked that we get a CT for surgical planning. CT shows cuneiform bone fractures as well as proximal fracture at the third metatarsal as well as those seen at on the plain film. Patient has been ambulating on this for the last 3 and half weeks. Advised patient nonweightbearing on this foot will place him on crutches. Ice as needed Dr. Guevara will follow-up with the patient early next week. No sign of infection in the affected foot. Medical Records I reviewed the patient's medical records. Lab Data I reviewed the patient's lab results. 08/17/23 09:55 08/17/23 09:55 Radiology Impressions Knee X-Ray 08/17/23 09:22 IMPRESSION: No acute findings. Foot X-Ray 08/17/23 09:46 IMPRESSION: Acute fractures of the 1st and 2nd metatarsals with soft tissue swelling Ankle X-Ray 08/17/23 09:47 IMPRESSION: Soft tissue swelling. Please see left foot x-ray report. Foot CT 08/17/23 10:34 IMPRESSION: Acute fractures involving the 1st through 3rd metatarsals and 1st through 3rd cuneiform bones as detailed above. Overall bony alignment remains good but there is some displacement of the tiny fracture fragments. Laboratory Results WBC 11.43 10^3/uL (3.29-11.43) 08/17/23 09:55 RBC 4.13 10^6/uL (3.85-5.65) 08/17/23 09:55 Hgb 13.20 g/dL (11.27-16.99) 08/17/23 09:55 Hct 39.4 % (37-53) 08/17/23 09:55 MCV 95.4 fl (82-101) 08/17/23 09:55 MCH 32.0 pg (27-33) 08/17/23 09:55 MCHC 33.5 g/dL (30-55) 08/17/23 09:55 RDW 13.2 % (12.1-15.1) 08/17/23 09:55 Plt Count 228 10^3/cmm (157-399) 08/17/23 09:55 MPV 8.1 fL (7.4-10.4) 08/17/23 09:55 Neut % (Auto) 59.0 % 08/17/23 09:55 Lymph % (Auto) 31.1 % 08/17/23 09:55 [place] % (Auto) 7.9 % 08/17/23 09:55 Eos % (Auto) 1.4 % 08/17/23 09:55 Baso % (Auto) 0.3 % 08/17/23 09:55 Neut # (Auto) 6.75 10^3/uL (1.8-7.7) 08/17/23 09:55 Lymph # (Auto) 3.6 10^3/uL (0.8-4.8) 08/17/23 09:55 [place] # (Auto) 0.9 10^3/uL (0.2-0.9) 08/17/23 09:55 Eos # (Auto) 0.2 10^3/uL (0.0-0.8) 08/17/23 09:55 Baso # (Auto) 0.0 10^3/uL (0.0-0.1) 08/17/23 09:55 Nucleated RBC % (auto) 0 % 08/17/23 09:55 Nucleated RBCs # 0.0 /100WBC 08/17/23 09:55 ESR < 1 mm/hr (0-10) 08/17/23 09:55 Sodium 136 mmol/L (136-145) 08/17/23 09:55 Potassium 3.7 mmol/L (3.5-5.1) 08/17/23 09:55 Chloride 101 mmol/L (98-107) 08/17/23 09:55 Carbon Dioxide 26 mmol/L (22-29) 08/17/23 09:55 Anion Gap 12.7 (5-19) 08/17/23 09:55 BUN 19 mg/dL (6-20) 08/17/23 09:55 Creatinine 0.8 mg/dL (0.7-1.2) 08/17/23 09:55 GFR Calculation 100.0 mL/min (90-130) 08/17/23 09:55 Glucose 96 mg/dL (65-115) 08/17/23 09:55 Calculated Osmolality 284 mOsm/kg (285-295) L 08/17/23 09:55 Calcium 8.6 mg/dL (8.5-10.5) 08/17/23 09:55 Total Bilirubin 0.9 mg/dL (0.15-1.2) 08/17/23 09:55 AST 19 U/L (0-40) 08/17/23 09:55 ALT 19 U/L (0-41) 08/17/23 09:55 Alkaline Phosphatase 70 U/L (40-130) 08/17/23 09:55 Total Protein 6.2 g/dL (6.6-8.7) L 08/17/23 09:55 Albumin 4.0 g/dL (3.5-5.2) 08/17/23 09:55 Globulin 2.2 g/dL (1.3-4.6) 08/17/23 09:55 All radiology interpretation(s) finalized by discharge Discharge Plan Discharge Patient Disposition: Home Clinical Impression: Metatarsal stress fracture of left foot Condition: Stable Prescriptions: No Action simvastatin 20 mg tablet 20 mg PO QDAY melatonin 10 mg capsule 10 mg PO BEDTIME lisinopril 40 mg tablet 40 mg PO QDAY acetaminophen [Tylenol Extra Strength] 500 mg tablet 500 mg PO Q4H PRN (Reason: Pain) meloxicam 15 mg tablet 15 mg PO DAILY Qty: 30 3RF Hold Instructions: Resume on 03/22/21. tizanidine 4 mg tablet 4 mg PO TID PRN (Reason: muscle spasticity) Qty: 90 1RF gabapentin 800 mg tablet 800 mg PO TID Qty: 90 1RF tamsulosin 0.4 mg capsule 0.4 mg PO DAILY amitriptyline 50 mg tablet 150 mg PO BEDTIME Discharge Orders: Discharge ED (Routine); Ordered 08/17/23 Ordered By: Brian Barrera Referrals: Benita Crooks FNP [Primary Care Provider] - Discharge Diet: Usual diet Discharge Activity: Limit activity as instructed Patient Instructions: Opioid Safety, Pain Management Activity Restrictions/Additional Instructions: Thank you for choosing [facility] for your healthcare needs today. It is very important that you follow up as instructed or that you return to the Emergency Department should you have concerns or if your condition changes or worsens in any way. You were seen today for pain in your foot and knee. On physical exam your left knee appears to be structurally intact there is a fair amount of swelling on your left foot. X-ray of the ankle normal however x-ray of the foot showed a fracture of the first and second metatarsal bones. Recommend you be completely nonweightbearing on the left foot until you follow-up with podiatry. Case management will make arrangements for you to get a follow-up appointment. I have discussed your case with the on-call lpn or medical assistant, Dr. Guevara. He will plan to see you next week. Coding Level of Care Code ED Regional Sales Leader for Rudy Riley
--- NOTE | 2023-08-17 09:46 | XRR_ITS ---
PROCEDURE INFORMATION: Exam: XR Left Foot Exam date and time: 08/17/2023 9:55 AM Age: 57 years old Clinical indication: Injury or trauma; Fall; Blunt trauma; Foot; Left; Additional info: Pain swelling TECHNIQUE: Imaging protocol: Radiologic exam of the left foot. Views: 3 or more views. COMPARISON: CR XR ankle LT min 3V* [id number] 08/17/2023 9:55 AM FINDINGS: Bones/joints: There are acute comminuted fractures involving the bases of the 1st and 2nd metatarsal bones. There is mild displacement of fracture fragments. No other bony abnormality noted. Soft tissues: Prominent soft tissue swelling involves the forefoot. XR/XR foot LT min 3V* [id number] IMPRESSION: Acute fractures of the 1st and 2nd metatarsals with soft tissue swelling
--- NOTE | 2023-08-17 09:47 | XRR_ITS ---
PROCEDURE INFORMATION: Exam: XR Left Ankle Exam date and time: 08/17/2023 9:55 AM Age: 57 years old Clinical indication: Injury or trauma; Fall; Blunt trauma; Ankle; Left; Additional info: Pain swelling TECHNIQUE: Imaging protocol: Radiologic exam of the left ankle. Views: 3 or more views. COMPARISON: CR XR ankle LT min 3V* [id number] 07/23/2023 11:44 AM FINDINGS: Bones/joints: See Soft tissues finding. Soft tissues: Soft tissue swelling overlies the ankle but no acute bony abnormality is noted. XR/XR ankle LT min 3V* [id number] IMPRESSION: Soft tissue swelling. Please see left foot x-ray report.
[2023-08-17 10:01] LABS: Basophils % 0.3 %; Eosinophils # 0.2 10^3/uL (0.0-0.8); Eosinophils % 1.4 %; Hematocrit 39.4 % (37-53); Lymphocytes # 3.6 10^3/uL (0.8-4.8); Lymphocytes % 31.1 %; Mean Corpuscular HGB Conc 33.5 g/dL (30-55); Mean Corpuscular Volume 95.4 fl (82-101); Mean Platelet Volume 8.1 fL (7.4-10.4); Monocytes # 0.9 10^3/uL (0.2-0.9); Monocytes % 7.9 %; Neutrophils # 6.75 10^3/uL (1.8-7.7); Nucleated Red Blood Cells % 0 %; Platelet Count 228 10^3/cmm (157-399); Red Blood Count 4.13 10^6/uL (3.85-5.65); Red Cell Distribution Width 13.2 % (12.1-15.1); White Blood Count 11.43 10^3/uL (3.29-11.43)
[2023-08-17 10:10] LABS: Erythrocyte Sedimentation Rate < 1 mm/hr (0-10)
[2023-08-17 10:21] LABS: Alanine Aminotransferase 19 U/L (0-41); Alkaline Phosphatase 70 U/L (40-130); Anion Gap 12.7 (5-19); Aspartate Amino Transferase 19 U/L (0-40); Blood Urea Nitrogen 19 mg/dL (6-20); Calcium 8.6 mg/dL (8.5-10.5); Carbon Dioxide 26 mmol/L (22-29); Chloride 101 mmol/L (98-107); Creatinine Clr Calc Pharmacy 121.5089; Globulin 2.2 g/dL (1.3-4.6); Glucose 96 mg/dL (65-115); Osmolality Calculated 284 mOsm/kg (285-295); Potassium 3.7 mmol/L (3.5-5.1); Sodium 136 mmol/L (136-145); Total Bilirubin 0.9 mg/dL (0.15-1.2); Total Protein 6.2 g/dL (6.6-8.7)
--- NOTE | 2023-08-17 10:34 | CTR_ITS ---
PROCEDURE INFORMATION: Exam: CT Left Lower Extremity Without Contrast, Foot Exam date and time: 08/17/2023 10:54 AM Age: 57 years old Clinical indication: Injury or trauma; Fall; Blunt trauma; Foot; Left; Additional info: Proximal 1st/2nd metatarsal communuted fracture TECHNIQUE: Imaging protocol: CT of the left lower extremity without contrast was performed. Exam focused on the foot. Radiation optimization: All CT scans at this facility use at least one of these dose optimization techniques: automated exposure control; mA and/or kV adjustment per patient size (includes targeted exams where dose is matched to clinical indication); or iterative reconstruction. COMPARISON: CR (LOW EXM, ) 08/17/2023 9:55 AM RADIATION DOSE METRICS: Total DLP (mGy-cm): 135.17 FINDINGS: Bones/joints: There are comminuted displaced fractures involving the bases of the 1st, 2nd and 3rd metatarsals as well as the 1st through 3rd cuneiform bones. The metatarsals do not appear displaced significantly. There is also a tiny comminuted chip fracture involving the anterior aspect of the cuboid bone. No other acute bony fracture noted. Soft tissues: Prominent soft tissue swelling is noted throughout the forefoot. CT/CT foot LT wo con* [id number] IMPRESSION: Acute fractures involving the 1st through 3rd metatarsals and 1st through 3rd cuneiform bones as detailed above. Overall bony alignment remains good but there is some displacement of the tiny fracture fragments.
[2023-08-17 11:13] VITALS: PULSE 85; O2SAT 99
--- NOTE | 2023-08-19 14:44 | DCPLANNER ---
messaged podiatry for er f/u
== END 2023-08-17 11:15 | disposition home or self-care (01) ==
PROVIDERS: Emergency Provider Family Medicine; PCP Registered Nurse
DX: M84.375A Stress fracture, left foot, initial encounter for fracture (principal); F17.210 Nicotine dependence, cigarettes, uncomplicated; Z85.51 Personal history of malignant neoplasm of bladder
CPT/HCPCS: 36415; 73562; 73610; 73630; 73700; 80053; 85025; 85651; 99284

== ENCOUNTER → 2023-08-20 10:00 | Outpatient (BNVA) | payer MEDICAID, SELFPAY | PROVIDERS: PCP Registered Nurse; Visit Provider Podiatrist Foot & Ankle Surgery | DX: S93.325A Dislocation of tarsometatarsal joint of left foot, initial encounter; S92.315A Nondisplaced fracture of first metatarsal bone, left foot, initial encounter for closed fracture; S92.325A Nondisplaced fracture of second metatarsal bone, left foot, initial encounter for closed fracture; S92.335A Nondisplaced fracture of third metatarsal bone, left foot, initial encounter for closed fracture; S92.225A Nondisplaced fracture of lateral cuneiform of left foot, initial encounter for closed fracture; S92.235A Nondisplaced fracture of intermediate cuneiform of left foot, initial encounter for closed fracture; S92.245A Nondisplaced fracture of medial cuneiform of left foot, initial encounter for closed fracture; W18.30XA Fall on same level, unspecified, initial encounter; Y93.K1 Activity, walking an animal | CPT/HCPCS: 99203 ==

== ENCOUNTER → 2023-08-28 08:57 | Outpatient (BNVA) | payer MEDICAID, SELFPAY | PROVIDERS: PCP Registered Nurse; Visit Provider Podiatrist Foot & Ankle Surgery | DX: S92.325A Nondisplaced fracture of second metatarsal bone, left foot, initial encounter for closed fracture (principal); S92.315A Nondisplaced fracture of first metatarsal bone, left foot, initial encounter for closed fracture; S92.335A Nondisplaced fracture of third metatarsal bone, left foot, initial encounter for closed fracture; S92.245A Nondisplaced fracture of medial cuneiform of left foot, initial encounter for closed fracture; S92.235A Nondisplaced fracture of intermediate cuneiform of left foot, initial encounter for closed fracture; S92.225A Nondisplaced fracture of lateral cuneiform of left foot, initial encounter for closed fracture; X58.XXXA Exposure to other specified factors, initial encounter | CPT/HCPCS: 29405; 99214 ==

== ENCOUNTER 2023-08-30 07:06 | Day surgery (SDC) | payer MEDICAID, SELFPAY ==
[2023-08-30] VITALS (10 sets, daily range): BP systolic 111–136; BP diastolic 73–90; PULSE 82–99; RESP 14–20; TEMP 36.1–36.3; O2SAT 94–96; BMI 25.7
--- NOTE | 2023-08-30 | XR_ITS ---
WS: [id number] C-ARM RADIOGRAPHS LEFT FOOT; 2 IMAGES HISTORY: LAKSHMI PICS COMPARISON: 08/17/2023 Intraoperative imaging during fixation hardware involving the first and second tarsal metatarsal daniel culations. There is a long wire extending through the proximal to mid third metatarsal. Extensive sta ples are noted. Mild persistent widening between the first and second proximal metatarsals. XR/XR foot LT 2V [id number] IMPRESSION: Intraoperative imaging during fixation and stabilization of the midfoot.
[2023-08-30] MEDS: sodium chloride 0.9% 1,000 ML 30 ML IV (07:32)
--- NOTE | 2023-08-30 08:07 | ANES.PREANE2 ---
Pre-Anesthetic Assessment Height/Weight: Height 1.85 m Weight 88.451 kg Temp Pulse Resp BP Pulse Ox O2 Del Method 97.2 F L 99 17 136/90 95 Room Air 08/30/23 07:19 08/30/23 07:19 08/30/23 07:19 08/30/23 07:19 08/30/23 07:19 08/30/23 07:19 Preop Diagnosis: Left Lisfranc fracture dislocation Operation Date: 08/30/23 08:45 Proposed Procedures p Arthrodesis Foot Tarsometatarsal Joint Fusion - FIRST AND SECOND TARSOMETATARSAL(Left) - Alli Guevara DPM s ORIF THIRD Metatarsal & lateral cuneiform(Left) - Alli Guevara DPM Last intake: Intake Last Liquid Date 08/29/23 Last Liquid Time 21:00 Last Solid Date 08/29/23 Last Solid Time 18:00 Social Tobacco 15 pack(s) per day Airway Submandibular: within normal limits Cervical ROM: within normal limits Mallampati: Class I Pulmonary None reported CV/HEM Hypertension None reported Hepatic None reported GI None reported Neuropsych None reported Anesthetic Plan ASA status: 2 Anesthesia: General Risk of > 500 ml blood loss (7ml/kg in children): No Medications/Allergies Home Medications Medication Instructions Recorded Confirmed Last Taken Type acetaminophen 500 mg tablet 500 mg PO Q4H PRN Pain 03/09/19 08/29/23 07/04/22 History (Tylenol Extra Strength) lisinopril 40 mg tablet 40 mg PO QDAY 03/09/19 08/29/23 08/28/23 History simvastatin 20 mg tablet 20 mg PO QDAY 03/11/19 08/29/23 08/29/23 History meloxicam 15 mg tablet 15 mg PO DAILY Pain #30 tabs 05/05/19 08/29/23 08/29/23 Rx gabapentin 800 mg tablet 800 mg PO TID pain #90 tabs 07/28/19 08/29/23 08/29/23 Rx tizanidine 4 mg tablet 4 mg PO TID PRN muscle spasticity 07/28/19 08/29/23 07/04/22 Rx #90 tabs amitriptyline 50 mg tablet 150 mg PO BEDTIME 07/23/23 08/29/23 08/28/23 History tamsulosin 0.4 mg capsule 0.4 mg PO DAILY 07/23/23 08/29/23 08/29/23 History Cam Boot to left #1 ea 08/20/23 08/28/23 Unknown Rx ibuprofen 200 mg tablet 200 mg PO Q6H PRN Pain 08/29/23 08/29/23 Unknown History Allergies Allergy/AdvReac Type Severity Reaction Status Date / Time No Known Allergies Allergy Verified 08/29/23 16:08 Current Medications Generic Name Dose Route Start Last Admin Trade Name Omero PRN Reason Stop Dose Admin Sodium Chloride 1,000 mls @ 30 mls/hr 08/30/23 07:15 08/30/23 07:32 Sodium Chloride 0.9% IV 08/31/23 07:14 30 mls/hr .Q24H KENYATTA Administration PFSH Anesthesia Medical History Bladder cancer Gross hematuria Smoker Opioid contract exists Chronic prostatitis BPH loc w urin obs/LUTS Spondylosis of lumbar spine with myelopathy Instability, joint, lumbosacral 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 Displacement of lumbar disc with radiculopathy DDD (degenerative disc disease), lumbar DDD (degenerative disc disease), cervical Chronic low back pain Surgical History History of transurethral destruction of bladder lesion S/P hernia repair BILATERAL INGUINAL REPAIR A CHILD History of wisdom tooth extraction Family History Mother Heart disease CAUSED IN 70`S Father Brain aneurysm CAUSED AT AGE 71 Social History Smoking and tobacco/nicotine status: current every day tobacco/nicotine user cigarettes Packs smoked per day: 0.5 Alcohol intake: current Alcohol intake frequency: holidays/special occasions only Substance/Drug Use: never Marital status: Single Current occupational status: disabled Data Anesthesia Cardiac Studies: No Data to Display
--- NOTE | 2023-08-30 09:01 | W.PM.OPSUD ---
Surgery/Procedure H&P Update DATE OF PROCEDURE: August 30, 2023 DATE H&P PERFORMED: 08/20/23 H&P UPDATE INFORMATION: I have reviewed H&P completed within last 30 days, I have examined patient prior to procedure, No changes to prior documentation and H&P is in [facility] [place] [facility] EMR on date indicated CHANGES TO PREVIOUS DOCUMENTATION: No changes PREOP DIAGNOSIS: Left Lisfranc fracture dislocation PRIMARY INDICATION FOR PROCEDURE: Fracture of left first, second, third metatarsal and fracture of medial, intermediate and lateral cuneiform, gross instability of left Lisfranc joint. PLANNED PROCEDURE: Operation Date: 08/30/23 08:45 Proposed Procedures p Arthrodesis Foot Tarsometatarsal Joint Fusion - FIRST AND SECOND TARSOMETATARSAL(Left) - Alli Guevara DPM s ORIF THIRD Metatarsal & lateral cuneiform(Left) - Alli Guevara DPM
[2023-08-30] MEDS: ceFAZolin 2,000 mg SDV 2000 MG IVP (09:02)
[2023-08-30] MEDS: lidocaine 2% INJ 20 mL INJECTION (09:22)
[2023-08-30] MEDS: BUPivacaine 0.5% INJ 30 mL INJECTION (09:22)
--- NOTE | 2023-08-30 10:42 | W.PM.BPON ---
Date of Procedure: 05/03/23 Surgeon: Alli Guevara DPM Grain Elevator Operator(s): René Procedure(s) performed: Open reduction internal fixation left third metatarsal and left lateral cuneiform. First and second tarsometatarsal joint arthrodesis, left foot. Findings of the procedure(s): Gross instability at the second and first tarsometatarsal joints of the left foot. Estimated blood loss: 5 mL Specimen(s) removed: No specimens Post-operative diagnosis: First and second tarsometatarsal joint fracture dislocation and fracture of third metatarsal and lateral cuneiform. General LMA, tourniquet time 68 minutes. No complications with anesthesia or surgery.
--- NOTE | 2023-08-30 10:45 | PM.OP ---
Operative Report Date of procedure: August 30, 2023 Pre-op diagnosis: Dislocation of tarsometatarsal joint of left foot, initial encounter S93.325A Closed nondisplaced fracture of first metatarsal bone of left foot, initial encounter S92.315A Closed nondisplaced fracture of second metatarsal bone of left foot, initial encounter S92.325A Closed nondisplaced fracture of third metatarsal bone of left foot, initial encounter S92.335A Closed nondisplaced fracture of lateral cuneiform of left foot, initial encounter S92.225A Closed nondisplaced fracture of intermediate cuneiform of left foot, initial encounter S92.235A Closed nondisplaced fracture of medial cuneiform of left foot, initial encounter S92.245A Post-op diagnosis: Same Procedure done: Procedures: 1) first and second tarsometatarsal joint fusion, left foot. CPT code 62232 2) open reduction internal fixation left third metatarsal. CPT code 25177 3) open reduction internal fixation left lateral cuneiform. CPT code 76894 Implants: [place] dual ray plate [place] locking screws 062 K wire 3-0 Vicryl, 4-0 Vicryl, skin jun Specimens removed/disposition: No specimens Pathology: No pathology Surgeon: Alli Guevara DPM Food Service Clerk: René Estimated blood loss: 5 68 IV fluids: See intraoperative documentation Urine output: See intraoperative documentation Complications: No complications encountered Brief History: Mr. Ortiz is an established 57 year old male patient here for follow up of his left foot fracture DOI: 07/19/23. He had a twisting and falling injury while walking his dog. He delayed seeking medical care initially but due to intense pain and worsening of pain at the left foot he eventually went to the emergency department. X-ray taken emergency department 08/17/2023 demonstrates comminuted fractures involving the bases of first and second and third metatarsal bones as well as medial, intermediate and lateral cuneiforms. CT scan taken 08/17/2023 of the left foot shows comminuted displaced fractures involving the bases of the first, second and third metatarsals as well as first, second and third cuneiform of the left foot there is also a avulsion fracture of the cuboid. Patient has an unstable Lisfranc fracture involving first, second and third metatarsal bases and medial, intermediate and lateral cuneiforms. Discussed surgical and conservative treatments. Conservative treatment will be serial casting and nonweightbearing for minimum of 8 to 12 weeks with a high likelihood of continued instability and pain. Surgical recommendations included ORIF versus arthrodesis, patient leaning towards arthrodesis as his more definitive single-stage procedure. Would require arthrodesis of the first and second tarsometatarsal joint and ORIF of the third metatarsal and lateral cuneiform. I reviewed at length with the patient, the risks, potential complications, benefits, alternatives, expectations, and typical outcomes associated with the surgery. The risks and potential complications were explained in detail, including but not limited to infection, wound dehiscence or soft tissue complications, bleeding and hematoma, chronic edema, neuritis or nerve damage producing numbness or chronic pain, CRPS, failure to relieve pain or worsening pain, thick / painful / unsightly scar, limited motion / stiffness, malposition, delayed union, malunion, or nonunion, fracture, reaction to implants, anesthetic complications, venous thromboembolism, and deformity recurrence. I discussed the notion of no regrets with the patient as it pertains to complications and outcomes. The patient seemed to understand the nature of the proposed care and required convalescence. They asked appropriate questions, answered to their satisfaction. They are aware no guarantees can be made as to a satisfactory outcome and they understand there may be other possible unforeseen complications or outcomes not listed here that will be treated accordingly if they arise. There were no written or implied guarantees given to the patient. They gave informed consent to proceed. Procedure: Under mild sedation the patient was brought to the operating room and remained on the gurney in supine position. A timeout was performed. Anesthesia was then administered by the anesthesia service. Local anesthesia was injected by myself consisting of 30 cc of one-to-one mixture 1% lidocaine and 0.5% Marcaine plain and a left 5 point ankle nerve block fashion. Well-padded pneumatic tourniquet applied to the patient's left ankle. Left lower extremity was then scrubbed, prepped and draped utilizing normal aseptic technique. Left foot was then exanguinated with an Esmarch bandage and tourniquet plated to 250 mmHg. Attention was directed to the left foot where a linear longitudinal incision was made over the interval of the first and second intermetatarsal space coursing just dorsal to the cuneiforms down to the distal one third of second metatarsal diaphysis, incision was made through skin with a #15 blade with dissection carried down through subcutaneous tissue to the layer of periosteum utilizing sharp and blunt technique. Care was taken to retract and preserve neurovascular and tendinous structures. All bleeders were ligated and cauterized as necessary. The first and second tarsometatarsal joints were grossly unstable necessitating arthrodesis as a more definitive means of fixation, first and second tarsometatarsal joints were prepped utilizing curettage followed by subchondral drilling, reduction utilizing fracture reduction clamps and temporarily stabilized with K wires next utilizing standard AO technique a dorsal locking dual ray plate by Dina was utilized to fixate the first and second tarsometatarsal joints with excellent bony apposition and compression noted maintaining anatomic reduction, temporary fixation was removed. AP, oblique and views of the left foot intraoperatively confirming excellent placement of hardware with excellent contour and apposition without violating adjacent joints. The incision was then irrigated and closed in a layered fashion with periosteum reapproximated with 3-0 Vicryl, subcutaneous tissue with 4-0 Vicryl and skin with skin jun. Attention was then directed to the third metatarsal fracture and lateral/third cuneiform which were then reduced utilizing fracture reduction forceps and fixated utilizing 0.062 K wire from dorsal distal to plantar proximal, reduction forceps were removed and compression was maintained with reduction of the third metatarsal fracture and lateral cuneiform fracture of the left foot which were noted to have anatomic alignment. Incisions were then dressed with Adaptic, sterile 4 x 4's, Kerlix followed by application of a well-padded short leg fiberglass cast to the left lower extremity. After cast was set up the tourniquet was deflated and a prompt hyperemic response is noted to the distal digits of the left foot. Patient tolerated the procedure and anesthesia well and was transferred to the PACU with vital signs stable and vascular status intact. Following a period of postoperative monitoring he will be discharged home, he was given instructions to remain strict nonweightbearing to the left lower extremity and elevate his left foot while resting. I cautioned him that due to underlying neuropathy that he may not receive pain feedback should he put weight on his left foot however this does not take away from the fact weightbearing will likely result in postoperative complications with increased risk for excessive swelling, surgical site dehiscence, infection, hardware failure and need for revision, ultimately he is at risk of loss of limb should he be noncompliant like he was preoperatively, patient expresses understanding. Patient was given my cell phone number to contact me directly with any postoperative questions or concerns, he was given scheduled follow-up and at home care instructions.
--- NOTE | 2023-08-30 13:37 | ANE.PACU2 ---
Inpatient post-anesthesia follow up: Airway intact: Yes Vital signs: Temperature 97.3 F Pulse Rate 82 Respiratory Rate 17 Blood Pressure 119/80 Pulse Oximetry 95 Oxygen Delivery Me thod Room Air Oxygen Flow Rate Fraction of Inspir ed Oxygen Hydration adequate: Yes Nausea and vomiting: No Pain level: controlled Mental status: Baseline Additional Comments: no apparent anesthetic complications noted
== END 2023-08-30 12:00 | disposition home or self-care (01) ==
PROVIDERS: PCP Registered Nurse; Visit Provider Podiatrist Foot & Ankle Surgery
PROC: (CPT 28740; principal; 2023-08-30 08:35)
PROC: (CPT 28485; 2023-08-30 08:35)
DX: S93.325A Dislocation of tarsometatarsal joint of left foot, initial encounter (principal); S92.315A Nondisplaced fracture of first metatarsal bone, left foot, initial encounter for closed fracture; S92.325A Nondisplaced fracture of second metatarsal bone, left foot, initial encounter for closed fracture; S92.335A Nondisplaced fracture of third metatarsal bone, left foot, initial encounter for closed fracture; S92.225A Nondisplaced fracture of lateral cuneiform of left foot, initial encounter for closed fracture; S92.235A Nondisplaced fracture of intermediate cuneiform of left foot, initial encounter for closed fracture; S92.245A Nondisplaced fracture of medial cuneiform of left foot, initial encounter for closed fracture; W01.0XXA Fall on same level from slipping, tripping and stumbling without subsequent striking against object, initial encounter; F17.210 Nicotine dependence, cigarettes, uncomplicated; I10 Essential (primary) hypertension; Z85.51 Personal history of malignant neoplasm of bladder; N40.1 Benign prostatic hyperplasia with lower urinary tract symptoms; N13.8 Other obstructive and reflux uropathy
CPT/HCPCS: 28465; 28485; 28730; 73620; 76000; C1713; J0690; J2250; J2371; J2405; J2704; J3010; J3490; J7030

== ENCOUNTER 2023-09-06 09:30 | Outpatient (CLI) | payer MEDICAID, SELFPAY | END 2023-09-06 09:31 | disposition home or self-care (01) | LOC: SPT 09-09 12:15 | PROVIDERS: PCP Registered Nurse; Visit Provider Podiatrist Foot & Ankle Surgery | DX: Z46.89 Encounter for fitting and adjustment of other specified devices (principal); S92.24 Fracture of medial cuneiform; S92.23 Fracture of intermediate cuneiform; S92.2 Fracture of other and unspecified tarsal bone(s); S92.335S Nondisplaced fracture of third metatarsal bone, left foot, sequela; X58.XXXS Exposure to other specified factors, sequela | CPT/HCPCS: L4361 ==

== ENCOUNTER → 2023-09-09 07:18 | Outpatient (BNVA) | payer MEDICAID, SELFPAY | PROVIDERS: PCP Registered Nurse; Visit Provider Podiatrist Foot & Ankle Surgery | DX: S92.315D Nondisplaced fracture of first metatarsal bone, left foot, subsequent encounter for fracture with routine healing; S92.325D Nondisplaced fracture of second metatarsal bone, left foot, subsequent encounter for fracture with routine healing; S92.335D Nondisplaced fracture of third metatarsal bone, left foot, subsequent encounter for fracture with routine healing; S92.225D Nondisplaced fracture of lateral cuneiform of left foot, subsequent encounter for fracture with routine healing; S92.23 Fracture of intermediate cuneiform; S92.245D Nondisplaced fracture of medial cuneiform of left foot, subsequent encounter for fracture with routine healing; S93.326D Dislocation of tarsometatarsal joint of unspecified foot, subsequent encounter; Z91.199 Patient's noncompliance with other medical treatment and regimen due to unspecified reason; X58.XXXD Exposure to other specified factors, subsequent encounter | CPT/HCPCS: 73630; 99024 ==

== ENCOUNTER → 2023-09-13 13:00 | Outpatient (BNVA) | payer MEDICAID, SELFPAY | PROVIDERS: PCP Registered Nurse; Visit Provider Podiatrist Foot & Ankle Surgery | DX: Z91.199 Patient's noncompliance with other medical treatment and regimen due to unspecified reason (principal); Z98.890 Other specified postprocedural states | CPT/HCPCS: 99024 ==

== ENCOUNTER → 2023-09-19 15:19 | Outpatient (BNVA) | payer MEDICAID, SELFPAY | PROVIDERS: PCP Registered Nurse; Visit Provider Podiatrist Foot & Ankle Surgery | DX: Z98.890 Other specified postprocedural states (principal) | CPT/HCPCS: 73630; 99024 ==

== ENCOUNTER → 2023-09-26 15:30 | Outpatient (BNVA) | payer MEDICAID, SELFPAY | PROVIDERS: PCP Registered Nurse; Visit Provider Podiatrist Foot & Ankle Surgery | DX: Z91.199 Patient's noncompliance with other medical treatment and regimen due to unspecified reason (principal); Z98.890 Other specified postprocedural states | CPT/HCPCS: 99024 ==

== ENCOUNTER → 2023-10-10 13:14 | Outpatient (BNVA) | payer MEDICAID, SELFPAY | PROVIDERS: PCP Registered Nurse; Visit Provider Podiatrist Foot & Ankle Surgery | DX: Z98.890 Other specified postprocedural states (principal); Z91.199 Patient's noncompliance with other medical treatment and regimen due to unspecified reason | CPT/HCPCS: 73630; 99024 ==

== ENCOUNTER → 2023-10-24 11:19 | Outpatient (BNVA) | payer MEDICAID, SELFPAY | PROVIDERS: PCP Registered Nurse; Visit Provider Podiatrist Foot & Ankle Surgery | DX: Z98.890 Other specified postprocedural states (principal); Z91.199 Patient's noncompliance with other medical treatment and regimen due to unspecified reason; M21.42 Flat foot [pes planus] (acquired), left foot; M25.375 Other instability, left foot; M19.072 Primary osteoarthritis, left ankle and foot | CPT/HCPCS: 73630; 99213 ==

== ENCOUNTER 2023-11-26 13:56 | Outpatient (CLI) | payer MEDICAID, SELFPAY ==
--- NOTE | 2023-11-26 14:03 | XR_ITS ---
WS: [id number] SCREENING DEXA SCAN [facility] CLINICAL INFORMATION: OSTEOPOROSIS WITH PATHOLOGICAL FRACTURE COMPARISON: None. FINDINGS: The L1-L4 bone mineral density measures 1.470 g/cm2. This corresponds to a T score score of 2.1 and Z score of 2.2. Left femoral neck bone mineral density measures 0.889 g/cm2. This corresponds to a T score of -1.5 an d Z score of -1.2. Right femoral neck bone mineral density measures 0.916 g/cm2. This corresponds to a T score -1.3of an d Z score of -1.0. Mean femoral neck bone mineral density measures 0.903 g/cm2. This corresponds to a T score of -1.4 an d Z score of -1.1. XR/XR DEXA axial skeleton* [id number] IMPRESSION: Normal bone mineralization lumbar spine. Osteopenia femoral necks. Patient's FRAX calculated 10 year probability for major osteoporotic fracture i s 5.9% and osteoporotic hip fracture is 1.2%.
== END 2023-11-26 13:57 | disposition home or self-care (01) ==
LOC: RAD 13:57
PROVIDERS: PCP Registered Nurse; Visit Provider Family Medicine
DX: M85.88 Other specified disorders of bone density and structure, other site (principal)
CPT/HCPCS: 77080

== ENCOUNTER → 2023-12-05 09:37 | Outpatient (BNVA) | payer MEDICAID, SELFPAY | PROVIDERS: PCP Registered Nurse; Visit Provider Physician Assistant | DX: M25.562 Pain in left knee (principal); S83.242A Other tear of medial meniscus, current injury, left knee, initial encounter; X50.9XXA Other and unspecified overexertion or strenuous movements or postures, initial encounter; M25.561 Pain in right knee | CPT/HCPCS: 73560; 73565; 99213 ==

== ENCOUNTER → 2023-12-16 13:53 | Outpatient (BNVA) | payer MEDICAID, SELFPAY | PROVIDERS: PCP Registered Nurse; Visit Provider Podiatrist Foot & Ankle Surgery | DX: M21.42 Flat foot [pes planus] (acquired), left foot (principal); M25.375 Other instability, left foot; M19.072 Primary osteoarthritis, left ankle and foot | CPT/HCPCS: 73630; 99213 ==

== ENCOUNTER → 2024-03-16 13:14 | Outpatient (BNVA) | payer MEDICAID, SELFPAY | PROVIDERS: PCP Registered Nurse; Visit Provider Podiatrist Foot & Ankle Surgery | DX: Z98.890 Other specified postprocedural states (principal); M21.42 Flat foot [pes planus] (acquired), left foot; M25.375 Other instability, left foot; M19.072 Primary osteoarthritis, left ankle and foot; L97.511 Non-pressure chronic ulcer of other part of right foot limited to breakdown of skin | CPT/HCPCS: 99213 ==

== ENCOUNTER → 2024-04-15 13:37 | Outpatient (BNVA) | payer MEDICAID, SELFPAY | PROVIDERS: PCP Registered Nurse; Visit Provider Podiatrist Foot & Ankle Surgery | DX: M21.42 Flat foot [pes planus] (acquired), left foot (principal); M25.375 Other instability, left foot; M19.072 Primary osteoarthritis, left ankle and foot; L97.511 Non-pressure chronic ulcer of other part of right foot limited to breakdown of skin | CPT/HCPCS: 99213 ==

== ENCOUNTER → 2024-05-13 09:05 | Outpatient (BNVA) | payer MEDICAID, SELFPAY | PROVIDERS: PCP Registered Nurse; Visit Provider Podiatrist Foot & Ankle Surgery | DX: M21.42 Flat foot [pes planus] (acquired), left foot (principal); M25.375 Other instability, left foot; M19.072 Primary osteoarthritis, left ankle and foot; L97.521 Non-pressure chronic ulcer of other part of left foot limited to breakdown of skin; S91.332A Puncture wound without foreign body, left foot, initial encounter; W26.8XXA Contact with other sharp object(s), not elsewhere classified, initial encounter | CPT/HCPCS: 99214 ==

== ENCOUNTER → 2024-06-24 11:09 | Outpatient (BNVA) | payer MEDICAID, SELFPAY | PROVIDERS: PCP Registered Nurse; Visit Provider Podiatrist Foot & Ankle Surgery | DX: M21.42 Flat foot [pes planus] (acquired), left foot (principal); M25.375 Other instability, left foot; M19.072 Primary osteoarthritis, left ankle and foot; L97.521 Non-pressure chronic ulcer of other part of left foot limited to breakdown of skin | CPT/HCPCS: 99213 ==